=== PATIENT | male | born 1985 | race Caucasian/White ===

== ENCOUNTER 2021-12-31 12:55 | Outpatient (CLI) | payer MEDICAID, SELFPAY ==
[2022-01-01 01:24] LABS: Chloride* 108 mmol/L (96-114); Potassium* 4.3 mmol/L (3.6-5.1); Sodium* 142 mmol/L (135-149)
[2022-01-01 01:27] LABS: Carbon Dioxide* 23 mmol/L (20-32); Estimated Glomerular Filt Rate 99 ml/min
[2022-01-01 01:28] LABS: Blood Urea Nitrogen* 22 mg/dL (5-24); Calcium* 9.2 mg/dL (8.4-10.6); Glucose* 100 mg/dL (60-115)
[2022-01-01 02:53] LABS: SARS PCR* Negative SARS-CoV-2 (Negative)
== END 2021-12-31 12:56 | disposition home or self-care (01) ==
PROVIDERS: PCP Family Medicine; Visit Provider Family Medicine
DX: Z01.818 Encounter for other preprocedural examination (principal); Z20.822 Contact with and (suspected) exposure to COVID-19
CPT/HCPCS: 80048; 87635

== ENCOUNTER 2023-03-07 06:45 | Outpatient (CLI) | payer MEDICAID, SELFPAY | END 2023-03-07 06:46 | disposition home or self-care (01) | LOC: NFLDREF 03-09 12:45 | PROVIDERS: PCP Family Medicine; Referring Provider Family Medicine; Visit Provider Obstetrics & Gynecology | DX: Z31.69 Encounter for other general counseling and advice on procreation (principal) | CPT/HCPCS: 89322 ==

== ENCOUNTER 2024-04-22 09:11 | Outpatient (CLI) | payer SELFPAY | END 2024-04-22 09:12 | disposition home or self-care (01) | PROVIDERS: PCP Family Medicine; Visit Provider Family Medicine | DX: E29.1 Testicular hypofunction (principal); R10.9 Unspecified abdominal pain; R63.5 Abnormal weight gain; Z13.6 Encounter for screening for cardiovascular disorders | CPT/HCPCS: 80053; 80061; 83690; 84270; 84402; 84403; 84443 ==

== ENCOUNTER 2024-05-04 22:08 | Emergency (ER) | payer MEDICAID, SELFPAY ==
--- OUTSIDE RECORDS SUMMARY | 2024-05-04 22:10 | XMS_ITS | Clinical Summary ---
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 Gender Identity Not on file Sexual Orientation Not on file Plan of Treatment Health Maintenance Due Date Last Done Comments Hepatitis B Vaccine (Standin g Order) (1 of 3 - 19+ 3-dose series) 09/18/2002 PERTUSSIS (Standing Order) 09/18/2002 TETANUS (Standing Order) 09/18/2002 COVID-19 Vaccine (2023-2 5 season) 2023 Influenza Vaccine Seasonal (Standing Order) (#1) 2023 HPV Vaccine (Standing Order) Aged Out No longer eligible based on patient's age to complete this topic Pneumococcal/PCV20 Vaccine: Pediatrics (2-5 yrs) and At-Risk Patients (6-64 yrs) (Standing Order) Aged Out No longer eligible b ased on patient's age to complete this topic Insurance [address] [place] [id number] [facility] Care Teams Director Building Relationship Specialty Start Date End Date Ridge Glass MD [address] [address] PCP - General Family Medicine 12/28/21
--- OUTSIDE RECORDS SUMMARY | 2024-05-04 22:10 | XMS_ITS | Continuity of Care Document ---
Author Name [facility]IN User [facility] Address Unknown Organization Unknown Address Unknown Procedures FILTER APPLIED:Only known Procedures with Onset Date within the last 5 years Procedure Date Procedure Provider Additional Inform ation Status SEMEN ANAL STRICT CRITERIA (92040) Completed Encounters FILTER APPLIED:Only known Encounters with Admission Date within the last 5 years Encounter Location Admission Discharge Billing Code [employer] Developer [facility]ande[facility] Outpatient [facility] Unknown [id number] MILKA FREITAS
--- OUTSIDE RECORDS SUMMARY | 2024-05-04 22:10 | XMS_ITS | Clinical Summary ---
Author Organization [facility] Address [place], [place] [address] Care Team Providers Care Time Clock Inspector Name Role Phone Dennis Glass MD Primary Care Provider [phone] Allergies No known active allergies Medications Ventolin HFA 90 mcg/actuation inhaler INHALE 2 PUFFS BY MOUTH EVERY 4 TO 6 HOURS NEEDED FOR SHORTNESS OF BREATH OR WHEEZING 4 Active predniSONE (DELTASONE) 20 mg tabletIndicatio ns:Pneumonia of left upper lobe due to infectious organism Take 2 Tablets (40 mg) by mouth once daily for 5 days. 10 Tablet 5 05/08/19 25 Active azithromycin (ZITHROMAX) 250 mg tabletIndicatio ns:Pneumonia of left upper lobe due to infectious organism Take 500 mg (2 tabs) by mouth on day 1, then 250 mg (1 tab) daily for days 2-5. 6 Tablet 5 05/08/19 25 Active amoxicillin-cla vulanate (AUGMENTIN) 875-125 mg tabletIndicatio ns:Pneumonia of left upper lobe due to infectious organism Take 1 Tablet by mouth every 12 hours for 5 days. 10 Tablet 5 05/08/19 25 Active albuterol HFA (PRO-AIR; VENTOLIN; PROVENTIL) 90 mcg/actuation inhalerIndicati ons:Pneumonia of left upper lobe due to infectious organism Inhale 2 Puffs by mouth 4 times daily if needed for Shortness Of Breath or Wheezing. 1 Each 5 Active Encounters Date Type Department Care Team Description 05/03/2024 3:59 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 - 05/03/2024 4:57 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 Emergency [facility] [address] [place] [address] Ilene Watkins, FRAME PULLEY MORTISING MACHINE OPERATOR Pneumonia of left upper lobe due to infectious organism (Primary Dx) Discharge Disposition: Home Self Care 05/03/2024 Travel from Last 3 Months Social History Tobacco Use Types Packs/Day Years Used Date Smoking Tobacco: Never Smokeless Tobacco: Never Tobacco Cessation:Counseling Given: Not Answered Sex and Gender Information Value Date Recorded Sex Assigned at Not on file Legal Sex Male 2:00 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 Gender Identity Not on file Sexual Orientation Not on file Obstetrics History Last Filed Vital Signs Vital Sign Reading Time Taken Comments Blood Pressure 158/88 05/03/2024 3:56 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 Pulse 118 05/03/2024 3:56 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 Temperature 37.6 C (99.7 F) 05/03/2024 3:55 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 Respiratory Rate 19 05/03/2024 3:56 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 Oxygen Saturation 99% 05/03/2024 3:56 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 Inhaled Oxygen Concentration - - Weight 127 kg (280 lb) 05/03/2024 3:56 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 Height 177.8 cm (5' 10) 05/03/2024 3:56 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 Body Mass Index 40.18 05/03/2024 3:56 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 Plan of Treatment Health Maintenance Due Date Last Done Comments Tdap 09/18/1994 Depression screening for age 12+ 1995 HIV for age 15-65 09/18/1998 BMI (ht and wt on same day) for age 18+ 09/18/2001 Hepatitis C screening for ag e 18-79 09/18/2001 Tetanus booster 2003 Lipids for age 35-44 09/18/2018 COVID-19 vaccine series ( season) 2023 Influenza for age 9-49 12/31/2023 Pneumococcal series for age 6-49 Aged Out No longer eligible based on patient's age to complete this topic Procedures Procedure Name Priority Date/Time Associated Diagnosis Comments XR CHEST 2 VIEWS PA AND LATERAL STAT 05/03/2024 4:28 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 from Last 3 Months Results * XR CHEST 2 VIEWS PA AND LATERAL (05/03/2024 4:28 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) Anatomical Region Laterality Modality CHEST, THORAX, Lung, HEART Digit al Radiography 05/03/2024 4:47 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 Impressions 05/03/2024 4:47 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 Triangular left suprahilar opacification consistent with a focal area of atelectasis and/or infiltrate. A mass or adenopathy might also give this appearance. Suggest interval follow-up post treatment to exclude underlying disease. Dictated by Torey French MD @ 05/03/2024 4:47:02 PM (Electronically Signed) Narrative 05/03/2024 4:47 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 For Patients: As a result of the Cures Act, medical imaging exams and procedure reports are released immediately into your electronic medical record. You may view this report before your referring provider. If you have questions, please contact your health care provider. INDICATION: Shortness of breath, cough, asthma. TECHNIQUE: Chest 2 views. COMPARISON: None FINDINGS: Cardiovascular and mediastinum: Heart size and vasculature are normal in caliber and appearance. Mediastinum is within normal limits. Lungs and pleural spaces: Triangular opacification left suprahilar region anteriorly. No other pulmonary abnormalities. Mild bilateral bronchial wall thickening. No pleural effusion or pneumothorax. Bones and soft tissues: No significant findings. Procedure Note Torey French MD - 05/03/2024 For Patients: As a result of the Cures Act, medical imagingexams and procedure reports are released immediately into your electronicmedical record. You may view this report before your referring provider.If you have questions, please contact your health care provider. INDICATION: Shortness of breath, cough, asthma. TECHNIQUE: Chest 2 views. COMPARISON: None FINDINGS: Cardiovascular and mediastinum: Heart size and vasculature are normal incaliber and appearance. Mediastinum is within normal limits. Lungs and pleural spaces: Triangular opacification left suprahilar regionanteriorly. No other pulmonary abnormalities. Mild bilateral bronchialwall thickening. No pleural effusion or pneumothorax. Bones and soft tissues: No significant findings. IMPRESSION: Triangular left suprahilar opacification consistent with a focal area ofatelectasis and/or infiltrate. A mass or adenopathy might also give thisappearance. Suggest interval follow-up post treatment to excludeunderlying disease. Dictated by Torey French MD @ 05/03/2024 4:47:02 PM (Electronically Signed) Ilene Watkins FRAME PULLEY MORTISING MACHINE OPERATOR GENERAL IMAGING Final Result from Last 3 Months Insurance [facility] Care Teams Time Clock Inspector Relationship Specialty Start Date End Date Dennis Glass MD [address] [place] [address] PCP - General Family Practice 05/03/24
--- NOTE | 2024-05-04 22:21 | ED.GENADULT ---
HPI - General Adult General Time Seen by Provider: 22:22 Date Seen: 05/04/24 Chief complaint: Flank Pain Stated complaint: Left side pain with bruising, has umbilical hernia Time Seen by Provider: 05/04/24 22:18 Source: patient, RN notes reviewed and old records reviewed Mode of arrival: ambulatory Limitations: no limitations History of Present Illness HPI narrative: Nick is a very pleasant 38-year-old gentleman currently on antibiotics for pneumonia who comes to the emergency room with complaints of left-sided abdominal pain. This pain started at approximately 2 hours ago and patient is unable to get comfortable. He notes that he feels like his abdomen is looking like it is bruised as well but he does not report any recent injury. He denies dysuria or blood in his urine. He has not had any vomiting. He does do note that he was diagnosed with pneumonia yesterday and he is feeling better after being placed on an antibiotic. He is quite worried that he had maybe has a bowel obstruction as he reports approximately 18 months of ribbon like stools with occasional blood. He has seen his primary Dr. Hernandez for this and is going to be set up for a colonoscopy. According to notes he has actually had weight gain and no weight loss. No fever or chills with this particular ED visit. Pain does appear to radiate into his left back. Patient does note that at home yesterday he did have some low back pain on both left and right. He was able to get into a comfortable position last night. He feels that this pain is new and he has not experienced in the past. Related Data Home Medications ?Medication ?Instructions ?Recorded ?Confirmed azithromycin 250 mg tablet 250 mg PO DAILY 05/04/24 05/04/24 prednisone 20 mg tablet 20 mg PO BID 05/04/24 05/04/24 Previous Rx's ?Medication ?Instructions ?Recorded albuterol sulfate 90 mcg/actuation 2 puff inhalation Q4-6H PRN 05/15/23 aerosol inhaler shortness of breath or wheezing #8.5 grams Allergies Allergy/AdvReac Type Severity Reaction Status Date / Time No Known Drug Allergies Allergy Verified 05/04/24 22:32 Review of Systems Status of ROS: Reports: 10 or more systems reviewed and unremarkable except as noted in History and below Narrative: No personal or family history of kidney stones. [facility] Medical History Orchitis ?N45.2 - Orchitis (ICD-10) ADD (attention deficit disorder) ?F98.8 - Other specified behavioral and emotional disorders with onset usually occurring in childhood and adolescence (ICD-10) Surgical History Status post nasal septoplasty ?Z98.890 - Other specified postprocedural states (ICD-10) Social History Smoking Status: Former smoker Second hand tobacco smoke exposure: No How often do you have a drink containing alcohol: never AUDIT-C Alcohol total score: 0 Non-prescribed substance use: denies use Exam Narrative: Exam Narrative: Tyrese is alert and oriented. He is pale and diaphoretic seen in room 5. He is standing up and pacing. Heart is with a tachycardic rate normal rhythm. Lungs are with decreased breath sounds in the left lower lung. Crackles noted bilaterally in the mid lungs. Abdomen is obese firm no significant tenderness. Unable to hear bowel sounds at this time. Patient does have a purplish like discoloration but this appears to be more delayed capillary refill on the abdomen rather than bruising itself. Ambulating without difficulty. In obvious discomfort. Const: Vital Signs, click to edit/add: Vital Signs - 24 hr 05/04/24 22:28 05/04/24 22:36 05/04/24 23:08 Temperature 98.0 F 98.0 F Pulse Rate [Right Pulse Oximeter] 110 H Respiratory Rate 20 Blood Pressure [Ri ght Upper Arm] 144/86 H Pulse Oximetry 99 99 Oxygen Delivery Me thod Room Air 05/05/24 00:18 Temperature 98.0 F Pulse Rate [Right Pulse Oximeter] 89 Respiratory Rate 20 Blood Pressure [Ri ght Upper Arm] 123/84 Pulse Oximetry 99 Oxygen Delivery Me thod Room Air Documenting provider has reviewed patient's vital signs: yes Course Course ED Course: IV has been placed in we will give patient morphine 4 mg, Zofran [address] of the abdomen and pelvis with IV contrast. Will also check CBC, comprehensive panel, lactate, lipase, urinalysis. Reevaluation(s) Reevaluation #1: Unfortunately, suboptimal CT given patient's significant movement according to our irrigation service technician. No obvious large hematomas noted however. Patient has continued pain in min give Dilaudid 0.5 mg IV. Reevaluation #2: CT indeed was suboptimal but there are no acute [place] [id number]. Patient is feeling improved but still has pain 5/10. I think it is safe to do Toradol 15 mg IV at this time. Urinalysis with a few RBCs. Suspect this may be a stone although not identified on the CT. Patient notes pain is coming back. Will repeat CT although without contrast at this time. Will pre treat with an additional Dilaudid 0.5 mg so patient is able to lie still. He is in agreement with this plan. Vital Signs Vital signs: Initial Vital Signs Temperature 98.0 F 05/04/24 22:28 Temperature Source Temporal Artery Scan 05/04/24 22:28 Pulse Rate 110 H 05/04/24 22:28 Respiratory Rate 20 05/04/24 22:28 Blood Pressure 144/86 H 05/04/24 22:28 Blood Pressure Mean 105 05/04/24 22:28 Blood Pressure Position Sitting 05/04/24 22:28 Pulse Oximetry 99 05/04/24 22:28 Oxygen Delivery Method Room Air 05/04/24 22:28 Vital Signs Temperature 98.0 F 05/04/24 22:28 Pulse Rate 110 H 05/04/24 22:28 Respiratory Rate 20 05/04/24 22:28 Blood Pressure 144/86 H 05/04/24 22:28 Pulse Oximetry 99 05/04/24 22:28 Oxygen Delivery Method Room Air 05/04/24 22:28 Temperature 98.0 F 05/05/24 00:18 Pulse Rate 89 05/05/24 00:18 Respiratory Rate 20 05/05/24 00:18 Blood Pressure 123/84 05/05/24 00:18 Pulse Oximetry 99 05/05/24 00:18 Oxygen Delivery Method Room Air 05/05/24 00:18 Medications Administered Medications: Discontinued Medications Generic Name Dose Route Start Last Admin Trade Name Freq PRN Reason Stop Dose Admin Hydromorphone HCl 0.5 mg 05/04/24 22:42 05/04/24 22:44 Hydromorphone 0.5 Mg/0.5 Ml Inj IVP 05/04/24 22:43 0.5 mg ONCE ONE Administration Hydromorphone HCl 0.5 mg 05/04/24 23:41 05/04/24 23:46 Hydromorphone 0.5 Mg/0.5 Ml Inj IVP 05/04/24 23:42 0.5 mg ONCE ONE Administration Ketorolac Tromethamine 15 mg 05/04/24 23:04 05/04/24 23:08 Ketorolac 15 Mg/Ml Inj IVP 05/04/24 23:05 15 mg ONCE ONE Administration Morphine Sulfate 4 mg 05/04/24 22:22 05/04/24 22:26 Morphine 4 Mg/Ml Inj IVP 05/04/24 22:23 4 mg ONCE ONE Administration Ondansetron HCl 4 mg 05/04/24 22:22 05/04/24 22:26 Ondansetron 2 Mg/Ml Inj IVP 05/04/24 22:23 4 mg ONCE ONE Administration Medical Decision Making MDM Narrative Medical decision making narrative: 1 flank pain-patient underwent a 2nd CT without contrast as is for CT was significantly compromised by movement. No evidence of stone, obstruction or other abnormality noted on the abdominal portion. Loculated pleural effusion noted on the left. Patient's does describe significant coughing and low back pain throughout the course of the last 24 hours. At this time perhaps this represents muscular spasm verses diaphragmatic irritation secondary to the effusion. Patient noted to have Dilaudid 0.5 mg x 2, Toradol 15 mg, morphine 4 mg. He is feeling better. I do believe he is quite relieved that there were no abnormalities noted in the colon as he is been experiencing changes in the stool caliber as well as occasional blood in his stool over the past 18 months. Patient denies any history of narcotic addiction. Will give him Alexandria 5/3 25 1-2 tablets q.6 hours p.r.n. pain 12. Via our [employer] machine. He is advised not to use any other sedating medications while using this medicine. Flexeril 10 mg p.o. t.i.d. p.r.n. may be used during the day but not in conjunction with Alexandria for any muscular spasm. 2. Pleural effusion-currently being treated with amoxicillin and Zithromax for pneumonia. He notes that he is a quite a bit better today. He was also started on prednisone and inhalers. O2 sats within normal limits and no complaints of shortness of breath this evening. 3. Leukocytosis-likely result of intense pain as well as prednisone use. No evidence of sepsis tonight with normal lactate and patient is afebrile. 4. Disposition-home at this time. Off work until he is feeling better. Follow-up with Dr. Poole for recheck. Return to the emergency room for worsening symptoms. Patient much improved upon discharge. No complaints of chest pain or shortness of breath while here in the emergency room. Medical Records Medical records reviewed: Yes I reviewed the patient's medical records Lab Data Lab results reviewed: Yes I reviewed the patient's lab results Labs: Lab Results 05/04/24 Range/Units 22:22 WBC 21.10 H (4.50-11.00) K/uL RBC 5.14 (4.30-5.90) m/uL Hgb 14.0 (13.5-17.5) gm/dL Hct 43.7 (37.0-53.0) % MCV 85 (80-100) fL MCH 27 (26-34) pg MCHC 32 (32-36) gm/dL RDW Coeff of Phyllis 13.5 (11.5-15.5) % Plt Count 371 (140-440) K/uL Neut % (Auto) 89.9 H (42.0-72.0) % Lymph % (Auto) 3.6 L (20-44) % [place] % (Auto) 5.7 (0.0-11.0) % Eos % (Auto) 0.0 (0.0-7.0) % Baso % (Auto) 0.0 (0.0-3.0) % Neut # (Auto) 19.00 H (1.7-7.0) K/uL Lymph # (Auto) 0.80 L (0.90-2.90) K/uL [place] # (Auto) 1.20 H (0.00-0.90) K/UL Eos # (Auto) 0.00 (0.00-0.50) K/uL Baso # (Auto) 0.00 (0.00-0.30) K/uL Abs Immat Gran (auto) 0.20 (0.00-0.30) K/uL Imm/Tot Granulo (auto) 0.8 % Sodium 136 (135-149) mmol/L Potassium 4.0 (3.6-5.1) mmol/L Chloride 102 (96-114) mmol/L Carbon Dioxide 24 (20-32) mmol/L Anion Gap 10 (7-15) mEq/L BUN 18 (5-24) mg/dL Creatinine 1.0 (0.5-1.5) mg/dL Estimated Creat Clear 104.58 Estimated GFR 98 ml/min Glucose 242 H (60-115) mg/dL Lactate 1.6 (0.5-1.9) mmol/L Calcium 8.9 (8.4-10.6) mg/dL Total Bilirubin 1.0 (0.1-1.5) mg/dL AST 30 (12-35) U/L ALT 70 H (4-50) U/L Alkaline Phosphatase 70 (40-150) U/L Total Protein 7.8 (6.0-8.3) g/dL Albumin 4.3 (3.3-5.0) g/dL Lipase 34 (23-300) U/L Urine Color Ceci A (Yellow) Urine Appearance Clear (Clear) Urine pH 6.0 (5.0-8.5) Ur Specific Roosevelt 1.015 (1.000-1.030) Urine Protein 2+ A (Negative) Urine Glucose (UA) Trace A (Negative) Urine Ketones Trace A (Negative) Urine Blood Trace-intact A (Negative) Urine Nitrite Negative (Negative) Urine Bilirubin Negative (Negative) Urine Urobilinogen 1.0 (0.2-1.0) Ur Leukocyte Esterase Negative (Negative) Urine RBC 2-5 A (0-2) Urine WBC 0-2 (0-5) Ur Squamous Epith Cells None (None-Few) Urine Bacteria Few A (None) Imaging Data CT scan - abdomen: Attestation: I have reviewed the pertinent imaging results. Radiologist's impression: Motion artifact degrades image quality (the patient reportedly is in extreme pain and unable to follow instructions). There is a small left-sided pleural effusion of uncertain etiology with curvilinear atelectasis at the left lung base. Clear right lung base. Diffusely decreased density of the liver likely due to hepatic fatty infiltration. No intrahepatic mass or biliary ductal dilatation. No splenomegaly or splenic infarcts. Normal-appearing pancreas without pancreatic masses. No evidence for pancreatitis. Largely contracted gallbladder. Normal adrenal glands and kidneys. No hydronephrosis. Normal caliber abdominal aorta and iliac arteries. Normal inferior vena cava. The stomach is distended by particular matter likely from a recently ingested meal. There may be a small sliding-type esophageal hiatal hernia. There is no evidence for small or large bowel obstruction. Normal appendix, image 111 series 2. No diverticular disease. No ascites or lymphadenopathy. The urinary bladder, prostate gland, and seminal vesicles are normal. No abdominal wall or inguinal hernias. Slight spurring at L4 and L5. Minor degenerate facet arthropathy of the lower most lumbar spine. IMPRESSION: 1. No acute abdominopelvic process identified. Motion artifact degrades image quality. 2. Distended stomach likely from a recently ingested meal. Possible sliding-type esophageal hiatal hernia. 3. Small left-sided pleural effusion of uncertain etiology. 4. Hepatic fatty infiltration. Repeat abdominal CT: Attestation: I have reviewed the pertinent imaging results. Radiologist's impression: Lower chest: Loculated left-sided pleural effusion with adjacent compressive atelectasis. Liver: Hepatic steatosis. No suspicious hepatic lesions. Gallbladder and bile ducts: Gallbladder is unremarkable. No intra or extrahepatic biliary ductal dilatation. Pancreas: Unremarkable. No mass or inflammation. Spleen: Normal in size. No masses. Adrenal glands: Normal in size. No nodules. Kidneys: Normal in size. No suspicious masses, stones, or hydronephrosis. Contrast in the renal collecting system. GI tract: Unremarkable. Normal in caliber. No sign of mass or inflammation. Normal appendix. Vasculature: Abdominal aorta is normal in caliber. Lymph nodes: No lymphadenopathy. Peritoneum/Abdominal Wall: Tiny fat containing umbilical hernia. Small right-sided inguinal fat containing hernia. No sign of mass or infiltration. No free air or significant free fluid. Pelvis: Contrast within the bladder. No pelvic masses. Bones: Unremarkable for age. IMPRESSION: 1. No acute intra-abdominal process identified. No interval change from 1 hour prior 2. Left-sided pleural effusion. Discharge Plan Discharge Clinical Impression: Pleural effusion, Acute flank pain Patient Disposition: Home, Self-Care Condition: Improved Additional Instructions: Continue amoxicillin, prednisone and Zithromax for treatment of presumed pneumonia. For discomfort you may use Alexandria also known as Vicodin or hydrocodone. Do not mix this medication with any other sedating meds. This will likely cause constipation and do suggest you start a stool softener. During the day you may use Flexeril if needed for muscular spasm. Please do not use Flexeril with Alexandria and again with any other sedating medications. You should not drive if using Flexeril or Alexandria or participate in any activity which could place you at risk for injury. Return to the ER as needed for worsening symptoms. Follow-up with Dr. Glass to ensure resolution of the chest infection. Prescriptions: No Action albuterol sulfate 90 mcg/actuation HFA aerosol inhaler 2 puff inhalation Q4-6H PRN (Reason: shortness of breath or wheezing) Qty: 8.5 3RF azithromycin 250 mg tablet 250 mg PO DAILY prednisone 20 mg tablet 20 mg PO BID Follow Up/Referrals: Dennis Glass MD [Primary Care Provider] - Stand Alone Forms: [email or web address] Info Instructions
--- NOTE | 2024-05-04 22:22 | CRLHL7_ITS ---
For Patients: As a result of the Century Cures Act, medical imaging exams and procedure reports are released immediately into your electronic medical record. You may view this report before your referring provider. If you have questions, please contact your health care provider. INDICATION: 38 year-old male. Left-sided flank and abdominal pain with distention. TECHNIQUE: Contrast-enhanced CT of the abdomen and pelvis. 148 cc nonionic Isovue-370 administered. FINDINGS: Motion artifact degrades image quality (the patient reportedly is in extreme pain and unable to follow instructions). There is a small left-sided pleural effusion of uncertain etiology with curvilinear atelectasis at the left lung base. Clear right lung base. Diffusely decreased density of the liver likely due to hepatic fatty infiltration. No intrahepatic mass or biliary ductal dilatation. No splenomegaly or splenic infarcts. Normal-appearing pancreas without pancreatic masses. No evidence for pancreatitis. Largely contracted gallbladder. Normal adrenal glands and kidneys. No hydronephrosis. Normal caliber abdominal aorta and iliac arteries. Normal inferior vena cava. The stomach is distended by particular matter likely from a recently ingested meal. There may be a small sliding-type esophageal hiatal hernia. There is no evidence for small or large bowel obstruction. Normal appendix, image 111 series 2. No diverticular disease. No ascites or lymphadenopathy. The urinary bladder, prostate gland, and seminal vesicles are normal. No abdominal wall or inguinal hernias. Slight spurring at L4 and L5. Minor degenerate facet arthropathy of the lower most lumbar spine. IMPRESSION: 1. No acute abdominopelvic process identified. Motion artifact degrades image quality. 2. Distended stomach likely from a recently ingested meal. Possible sliding-type esophageal hiatal hernia. 3. Small left-sided pleural effusion of uncertain etiology. 4. Hepatic fatty infiltration. Please note that all CT scans at this facility use dose modulation, iterative reconstruction, and/or weight-based dosing when appropriate to reduce radiation dose to as low as reasonably achievable. Dictated by Jonn Gates MD @ 05/04/2024 10:52:05 PM (Electronically Signed)
[2024-05-04] MEDS: MORPHINE 4 MG/ML INJ IVP (22:26)
[2024-05-04] MEDS: ONDANSETRON 2 MG/ML inj 4 MG IVP (22:26)
[2024-05-04 22:28] VITALS: BP 144/86; PULSE 110; RESP 20; TEMP 36.7; O2SAT 99; BMI 39.1
--- OUTSIDE RECORDS SUMMARY | 2024-05-04 22:31 | XMS_ITS | Continuity of Care Document ---
Author Name [facility] User [facility] Address Unknown Organization Unknown Address Unknown Procedures FILTER APPLIED:Only known Procedures with Onset Date within the last 5 years Procedure Date Procedure Provider Additional Inform ation Status SEMEN ANAL STRICT CRITERIA (58432) Completed Encounters FILTER APPLIED:Only known Encounters with Admission Date within the last 5 years Encounter Location Admission Discharge Billing Code Machine Tender [facility] Unknown [id number] MILKA FREITAS
--- OUTSIDE RECORDS SUMMARY | 2024-05-04 22:31 | XMS_ITS | Clinical Summary ---
Author Organization 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
--- OUTSIDE RECORDS SUMMARY | 2024-05-04 22:31 | XMS_ITS | Clinical Summary ---
Author Organization [facility] Address [place], [place] [address] Care Team Providers Care Airplane And Engine Inspector Name Role Phone Dennis Glass MD Primary Care Provider [phone] Allergies No known active allergies Medications Ventolin [...] Department Care Team Description 05/03/2024 3:59 PM 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 HELPER - 05/03/2024 4:57 PM 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 HELPER Emergency [facility] [address] [place] [address] Ilene Watkins, MEDICAL TECHNOLOGIST PRN Pneumonia of left upper lobe due to infectious organism (Primary Dx) Discharge Disposition: Home Self Care 05/03/2024 Travel from Last 3 Months Social History Tobacco Use Types Packs/Day Years Used Date Smoking Tobacco: Never Smokeless Tobacco: Never Tobacco Cessation:Counseling Given: Not Answered Sex and Gender Information Value Date Recorded Sex Assigned at Not on file Legal Sex Male 2:00 PM 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 HELPER Gender Identity Not on file Sexual Orientation Not on file Obstetrics History Last Filed Vital Signs Vital Sign Reading Time Taken Comments Blood Pressure 158/88 05/03/2024 3:56 PM 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 HELPER Pulse 118 05/03/2024 3:56 PM 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 HELPER Temperature 37.6 C (99.7 F) 05/03/2024 3:55 PM 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 HELPER Respiratory Rate 19 05/03/2024 3:56 PM 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 HELPER Oxygen Saturation 99% 05/03/2024 3:56 PM 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 HELPER Inhaled Oxygen Concentration - - Weight 127 kg (280 lb) 05/03/2024 3:56 PM 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 HELPER Height 177.8 cm (5' 10) 05/03/2024 3:56 PM 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 HELPER Body Mass Index 40.18 05/03/2024 3:56 PM 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 HELPER Plan of Treatment Health Maintenance Due Date [...] PA AND LATERAL STAT 05/03/2024 4:28 PM 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 HELPER from Last 3 Months Results * XR CHEST 2 VIEWS PA AND LATERAL (05/03/2024 4:28 PM 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 HELPER) Anatomical Region Laterality Modality CHEST, THORAX, Lung, HEART Digit al Radiography 05/03/2024 4:47 PM 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 HELPER Impressions 05/03/2024 4:47 PM 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 HELPER Triangular left suprahilar opacification consistent with a focal area of atelectasis and/or infiltrate. A mass or adenopathy might also give this appearance. Suggest interval follow-up post treatment to exclude underlying disease. Dictated by Torey French MD @ 05/03/2024 4:47:02 PM (Electronically Signed) Narrative 05/03/2024 4:47 PM 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 HELPER For Patients: As a result of the [...] 05/03/2024 4:47:02 PM (Electronically Signed) Ilene Watkins MEDICAL TECHNOLOGIST PRN GENERAL IMAGING Final Result from Last 3 Months Insurance [facility] Care Teams Airplane And Engine Inspector Relationship Specialty Start Date End Date Dennis Glass MD [id number] [place] [address] PCP - General Family Practice 05/03/24
[2024-05-04 22:35] LABS: Lactate* 1.6 mmol/L (0.5-1.9)
[2024-05-04 22:36] VITALS: O2SAT 99
[2024-05-04 22:37] LABS: Hematocrit 43.7 % (37.0-53.0); Immature Granulocytes Pct Auto 0.8 %; Lymphocytes Percent Auto 3.6 % (20-44); Mean Corpuscular HGB Conc 32 gm/dL (32-36); Mean Corpuscular Hemoglobin 27 pg (26-34); Mean Corpuscular Volume 85 fL (80-100); Monocytes Percent Auto 5.7 % (0.0-11.0); Neutrophils Percent Auto 89.9 % (42.0-72.0); Platelet Count* 371 K/uL (140-440); RDW Coefficient of Variation % 13.5 % (11.5-15.5); Red Blood Count 5.14 m/uL (4.30-5.90)
[2024-05-04] MEDS: HYDROmorphone 0.5 mg/0.5 ml inj IVP ×2 (22:44→23:46)
[2024-05-04 22:54] LABS: Appearance Urine Clear (Clear); Bilirubin Urine Negative (Negative); Blood Urine Trace-intact (Negative); Color Urine Amber (Yellow); Glucose Urine Trace (Negative); Ketones Urine Trace (Negative); Leukocyte Esterase Urine Negative (Negative); Nitrite Urine Negative (Negative); Protein Urine 2+ (Negative); Specific Gravity Urine 1.015 (1.000-1.030)
[2024-05-04 22:55] LABS: Albumin* 4.3 g/dL (3.3-5.0); Chloride* 102 mmol/L (96-114); Sodium* 136 mmol/L (135-149)
[2024-05-04 22:58] LABS: Alanine Aminotransferase* 70 U/L (4-50); Alkaline Phosphatase* 70 U/L (40-150); Anion Gap 10 mEq/L (7-15); Aspartate Amino Transferase* 30 U/L (12-35); Blood Urea Nitrogen* 18 mg/dL (5-24); Calcium* 8.9 mg/dL (8.4-10.6); Carbon Dioxide* 24 mmol/L (20-32); Est. Creatinine Clearance* 104.58; Estimated Glomerular Filt Rate 98 ml/min; Glucose* 242 mg/dL (60-115); Lipase* 34 U/L (23-300); Total Protein* 7.8 g/dL (6.0-8.3)
[2024-05-04 23:01] LABS: Bacteria Urine Few; WBC Urine 0-2 (0-5)
[2024-05-04 23:02] LABS: Slide Review Reflex No
[2024-05-04 23:08] VITALS: TEMP 36.7
[2024-05-04] MEDS: KETOROLAC 15 MG/ML inj IVP (23:08)
--- NOTE | 2024-05-04 23:41 | CRLHL7_ITS ---
For Patients: As a result of the Century Cures Act, medical imaging exams and procedure reports are released immediately into your electronic medical record. You may view this report before your referring provider. If you have questions, please contact your health care provider. INDICATION: LEFT FLANK PAIN,WBC HIGH. TECHNIQUE: CT abdomen and pelvis without contrast. COMPARISON: May 04, 2024. FINDINGS: Limited evaluation of the intra-abdominal solid organs without IV contrast. Lower chest: Loculated left-sided pleural effusion with adjacent compressive atelectasis. Liver: Hepatic steatosis. No suspicious hepatic lesions. Gallbladder and bile ducts: Gallbladder is unremarkable. No intra or extrahepatic biliary ductal dilatation. Pancreas: Unremarkable. No mass or inflammation. Spleen: Normal in size. No masses. Adrenal glands: Normal in size. No nodules. Kidneys: Normal in size. No suspicious masses, stones, or hydronephrosis. Contrast in the renal collecting system. GI tract: Unremarkable. Normal in caliber. No sign of mass or inflammation. Normal appendix. Vasculature: Abdominal aorta is normal in caliber. Lymph nodes: No lymphadenopathy. Peritoneum/Abdominal Wall: Tiny fat containing umbilical hernia. Small right-sided inguinal fat containing hernia. No sign of mass or infiltration. No free air or significant free fluid. Pelvis: Contrast within the bladder. No pelvic masses. Bones: Unremarkable for age. IMPRESSION: 1. No acute intra-abdominal process identified. No interval change from 1 hour prior 2. Left-sided pleural effusion. Please note that all CT scans at this facility use dose modulation, iterative reconstruction, and/or weight-based dosing when appropriate to reduce radiation dose to as low as reasonably achievable. Dictated by Rachana Tavarez MD @ 05/05/2024 12:09:40 AM (Electronically Signed)
[2024-05-05 00:18] VITALS: BP 123/84; PULSE 89; RESP 20; TEMP 36.7; O2SAT 99
[2024-05-05 01:00] VITALS: BP 123/84; PULSE 89; RESP 20; TEMP 36.7
== END 2024-05-05 01:00 | disposition home or self-care (01) ==
PROVIDERS: Emergency Provider Family Medicine; PCP Family Medicine
DX: J90 Pleural effusion, not elsewhere classified (principal); J18.9 Pneumonia, unspecified organism
CPT/HCPCS: 36415; 74176; 74177; 80053; 81001; 83605; 83690; 85025; 87086; 94761; 96374; 96375; 99284; J1171; J1885; J2270; J2405; Q9967

== ENCOUNTER 2024-05-07 18:02 | Emergency (ER) | payer OTHER, SELFPAY ==
[2024-05-07] VITALS (12 sets, daily range): BP systolic 116–135; BP diastolic 82–107; PULSE 118–127; RESP 16–24; TEMP 37.5; O2SAT 90–100; BMI 40.4
--- NOTE | 2024-05-07 19:13 | ED.GENADULT ---
HPI - General Adult General Time Seen by Provider: 19:13 <Maranda Younger MD - Last Filed: 05/08/24 17:23> Date Seen: 05/07/24 <Maranda Younger MD - Last Filed: 05/08/24 17:23> Chief complaint: Shortness of Breath/Dyspnea <Maranda Younger MD - Last Filed: 05/08/24 17:23> Stated complaint: Pneumonia, fluid buildup <Maranda Younger MD - Last Filed: 05/08/24 17:23> Time Seen by Provider: 05/07/24 19:02 <Maranda Younger MD - Last Filed: 05/08/24 17:23> Source: patient and family <Maranda Younger MD - Last Filed: 05/08/24 17:23> Mode of arrival: ambulatory <Maranda Younger MD - Last Filed: 05/08/24 17:23> Limitations: no limitations <Maranda Younger MD - Last Filed: 05/08/24 17:23> History of Present Illness HPI narrative: This 38-year-old male is referred from Urgent Care with large left-sided pleural effusion and increasing shortness of breath. Patient was sick for about 4-5 weeks with cough and respiratory symptoms. Went in to an outside urgent care this past Monday, today is Monday. He did get started on Augmentin, Z-Santiago, prednisone. He does have underlying asthma and has been using his albuterol frequently. His fevers finally broke on Monday. He did come into the ED on Monday with flank pain, was found have a left pleural effusion. Patient had a CT of his abdomen and pelvis thinking that there was something wrong abdominally, there is just left pleural effusion. Really is not feeling improved with outpatient antibiotics as far as his coughing. His fever is better. His oxygenation in urgent care was down to 92%. His prior readings with us were in the mid to upper 90s. <Maranda Younger MD - Last Filed: 05/08/24 17:23> Related Data Home medications: Home Medications ?Medication ?Instructions ?Recorded ?Confirmed azithromycin 250 mg tablet 250 mg PO DAILY 05/04/24 05/07/24 prednisone 20 mg tablet 20 mg PO BID 05/04/24 05/07/24 Previous Rx's ?Medication ?Instructions ?Recorded albuterol sulfate 90 mcg/actuation 2 puff inhalation Q4-6H PRN 05/15/23 aerosol inhaler shortness of breath or wheezing #8.5 grams <Maranda Younger MD - Last Filed: 05/08/24 17:23> Allergies/adverse reactions: Allergies Allergy/AdvReac Type Severity Reaction Status Date / Time No Known Drug Allergies Allergy Verified 05/07/24 19:26 <Maranda Younger MD - Last Filed: 05/08/24 17:23> Review of Systems Status of ROS: Reports: 6 or more systems reviewed and unremarkable except as noted in History and below <Maranda Younger MD - Last Filed: 05/08/24 17:23> [facility] Medical History: Medical History Orchitis ?N45.2 - Orchitis (ICD-10) ADD (attention deficit disorder) ?F98.8 - Other specified behavioral and emotional disorders with onset usually occurring in childhood and adolescence (ICD-10) <Maranda Younger MD - Last Filed: 05/08/24 17:23> Surgical History: Surgical History Status post nasal septoplasty ?Z98.890 - Other specified postprocedural states (ICD-10) <Maranda Younger MD - Last Filed: 05/08/24 17:23> Social History: Social History Smoking Status: Former smoker Second hand tobacco smoke exposure: No How often do you have a drink containing alcohol: never AUDIT-C Alcohol total score: 0 Non-prescribed substance use: denies use <Maranda Younger MD - Last Filed: 01/08/25 17:23> Exam Const: Vital Signs, click to edit/add: Vital Signs - 24 hr 05/08/24 14:00 05/08/24 14:30 05/08/24 14:45 Temperature Pulse Rate 112 H 112 H 111 H Pulse Rate [Right Pulse Oximeter] Respiratory Rate Blood Pressure Blood Pressure [Ri ght Upper Arm] Pulse Oximetry 94 96 97 Oxygen Delivery Me thod Oxygen Flow Rate 05/08/24 15:39 05/08/24 15:40 05/08/24 17:37 Temperature 98.5 F 98.6 F Pulse Rate 118 H Pulse Rate [Right Pulse Oximeter] 116 H 114 H Respiratory Rate 18 18 Blood Pressure 134/82 Blood Pressure [Ri ght Upper Arm] 134/82 126/92 H Pulse Oximetry 95 95 97 Oxygen Delivery Me thod Nasal Cannula Nasal Cannula Oxygen Flow Rate 2.5 2.5 05/08/24 19:00 05/08/24 19:19 05/08/24 21:55 Temperature Pulse Rate 106 H 109 H 111 H Pulse Rate [Right Pulse Oximeter] Respiratory Rate 18 20 Blood Pressure 123/75 129/86 Blood Pressure [Ri ght Upper Arm] Pulse Oximetry 94 95 94 Oxygen Delivery Me thod Nasal Cannula Nasal Cannula Nasal Cannula Oxygen Flow Rate 2.5 2.5 2.5 05/08/24 22:30 05/08/24 22:45 05/08/24 23:00 Temperature 98.7 F Pulse Rate 107 H 117 H Pulse Rate [Right Pulse Oximeter] Respiratory Rate Blood Pressure Blood Pressure [Ri ght Upper Arm] Pulse Oximetry 94 99 Oxygen Delivery Me thod Nasal Cannula Oxygen Flow Rate 1 05/08/24 23:04 05/08/24 23:30 05/09/24 00:00 Temperature Pulse Rate 111 H 110 H 114 H Pulse Rate [Right Pulse Oximeter] Respiratory Rate Blood Pressure 123/73 Blood Pressure [Ri ght Upper Arm] Pulse Oximetry 96 95 95 Oxygen Delivery Me thod Oxygen Flow Rate 05/09/24 00:03 05/09/24 01:02 05/09/24 01:03 Temperature Pulse Rate 111 H 108 H 109 H Pulse Rate [Right Pulse Oximeter] Respiratory Rate 18 Blood Pressure 138/98 H 145/97 H Blood Pressure [Ri ght Upper Arm] Pulse Oximetry 94 95 95 Oxygen Delivery Me thod Room Air Oxygen Flow Rate 05/09/24 01:30 05/09/24 01:50 05/09/24 02:00 Temperature 98.6 F Pulse Rate 112 H 115 H Pulse Rate [Right Pulse Oximeter] Respiratory Rate Blood Pressure Blood Pressure [Ri ght Upper Arm] Pulse Oximetry 96 92 Oxygen Delivery Me thod Room Air Room Air Oxygen Flow Rate 05/09/24 02:30 05/09/24 04:30 05/09/24 05:00 Temperature Pulse Rate 110 H 113 H 117 H Pulse Rate [Right Pulse Oximeter] Respiratory Rate Blood Pressure Blood Pressure [Ri ght Upper Arm] Pulse Oximetry 95 92 95 Oxygen Delivery Me thod Room Air Nasal Cannula Nasal Cannula Oxygen Flow Rate 1 1 05/09/24 05:30 05/09/24 06:00 05/09/24 06:30 Temperature Pulse Rate 112 H 104 H 110 H Pulse Rate [Right Pulse Oximeter] Respiratory Rate Blood Pressure Blood Pressure [Ri ght Upper Arm] Pulse Oximetry 93 92 93 Oxygen Delivery Me thod Nasal Cannula Nasal Cannula Nasal Cannula Oxygen Flow Rate 1 1 1 05/09/24 06:53 05/09/24 08:55 05/09/24 10:39 Temperature 98.1 F 97.4 F L 97.7 F Pulse Rate Pulse Rate [Right Pulse Oximeter] 118 H 115 H 114 H Respiratory Rate 18 18 18 Blood Pressure Blood Pressure [Ri ght Upper Arm] 148/99 H 132/76 130/91 H Pulse Oximetry 91 94 93 Oxygen Delivery Me thod Nasal Cannula Nasal Cannula Nasal Cannula Oxygen Flow Rate 1 1 1 05/09/24 12:39 Temperature 98.4 F Pulse Rate Pulse Rate [Right Pulse Oximeter] 108 H Respiratory Rate 18 Blood Pressure Blood Pressure [Ri ght Upper Arm] 129/85 Pulse Oximetry 97 Oxygen Delivery Me thod Nasal Cannula Oxygen Flow Rate 1 This 38-year-old 48 male is alert, interactive, dry irritating cough that does interrupt his speech pattern. His voice is normal, not hoarse. He has flushed cheeks but no rash. Sclera clear. Neck thick but supple, no adenopathy noted. Diminished breath sounds throughout his left posterior lung field, right sounds normal without wheezing or crackles. CV fast but regular, no murmur, normal S1-S2, no S3-S4. Abdomen is soft, nontender, nondistended, no organomegaly. He has no lower extremity edema. <Maranda Younger MD - Last Filed: 05/08/24 17:23> Vital Signs, click to edit/add: Vital Signs - 24 hr 05/08/24 14:00 05/08/24 14:30 05/08/24 14:45 Temperature Pulse Rate 112 H 112 H 111 H Pulse Rate [Right Pulse Oximeter] Respiratory Rate Blood Pressure Blood Pressure [Ri ght Upper Arm] Pulse Oximetry 94 96 97 Oxygen Delivery Me thod Oxygen Flow Rate 05/08/24 15:39 05/08/24 15:40 05/08/24 17:37 Temperature 98.5 F 98.6 F Pulse Rate 118 H Pulse Rate [Right Pulse Oximeter] 116 H 114 H Respiratory Rate 18 18 Blood Pressure 134/82 Blood Pressure [Ri ght Upper Arm] 134/82 126/92 H Pulse Oximetry 95 95 97 Oxygen Delivery Me thod Nasal Cannula Nasal Cannula Oxygen Flow Rate 2.5 2.5 05/08/24 19:00 05/08/24 19:19 05/08/24 21:55 Temperature Pulse Rate 106 H 109 H 111 H Pulse Rate [Right Pulse Oximeter] Respiratory Rate 18 20 Blood Pressure 123/75 129/86 Blood Pressure [Ri ght Upper Arm] Pulse Oximetry 94 95 94 Oxygen Delivery Me thod Nasal Cannula Nasal Cannula Nasal Cannula Oxygen Flow Rate 2.5 2.5 2.5 05/08/24 22:30 05/08/24 22:45 05/08/24 23:00 Temperature 98.7 F Pulse Rate 107 H 117 H Pulse Rate [Right Pulse Oximeter] Respiratory Rate Blood Pressure Blood Pressure [Ri ght Upper Arm] Pulse Oximetry 94 99 Oxygen Delivery Me thod Nasal Cannula Oxygen Flow Rate 1 05/08/24 23:04 05/08/24 23:30 05/09/24 00:00 Temperature Pulse Rate 111 H 110 H 114 H Pulse Rate [Right Pulse Oximeter] Respiratory Rate Blood Pressure 123/73 Blood Pressure [Ri ght Upper Arm] Pulse Oximetry 96 95 95 Oxygen Delivery Me thod Oxygen Flow Rate 05/09/24 00:03 05/09/24 01:02 05/09/24 01:03 Temperature Pulse Rate 111 H 108 H 109 H Pulse Rate [Right Pulse Oximeter] Respiratory Rate 18 Blood Pressure 138/98 H 145/97 H Blood Pressure [Ri ght Upper Arm] Pulse Oximetry 94 95 95 Oxygen Delivery Me thod Room Air Oxygen Flow Rate 05/09/24 01:30 05/09/24 01:50 05/09/24 02:00 Temperature 98.6 F Pulse Rate 112 H 115 H Pulse Rate [Right Pulse Oximeter] Respiratory Rate Blood Pressure Blood Pressure [Ri ght Upper Arm] Pulse Oximetry 96 92 Oxygen Delivery Me thod Room Air Room Air Oxygen Flow Rate 05/09/24 02:30 05/09/24 04:30 05/09/24 05:00 Temperature Pulse Rate 110 H 113 H 117 H Pulse Rate [Right Pulse Oximeter] Respiratory Rate Blood Pressure Blood Pressure [Ri ght Upper Arm] Pulse Oximetry 95 92 95 Oxygen Delivery Me thod Room Air Nasal Cannula Nasal Cannula Oxygen Flow Rate 1 1 05/09/24 05:30 05/09/24 06:00 05/09/24 06:30 Temperature Pulse Rate 112 H 104 H 110 H Pulse Rate [Right Pulse Oximeter] Respiratory Rate Blood Pressure Blood Pressure [Ri ght Upper Arm] Pulse Oximetry 93 92 93 Oxygen Delivery Me thod Nasal Cannula Nasal Cannula Nasal Cannula Oxygen Flow Rate 1 1 1 05/09/24 06:53 05/09/24 08:55 05/09/24 10:39 Temperature 98.1 F 97.4 F L 97.7 F Pulse Rate Pulse Rate [Right Pulse Oximeter] 118 H 115 H 114 H Respiratory Rate 18 18 18 Blood Pressure Blood Pressure [Ri ght Upper Arm] 148/99 H 132/76 130/91 H Pulse Oximetry 91 94 93 Oxygen Delivery Me thod Nasal Cannula Nasal Cannula Nasal Cannula Oxygen Flow Rate 1 1 1 05/09/24 12:39 Temperature 98.4 F Pulse Rate Pulse Rate [Right Pulse Oximeter] 108 H Respiratory Rate 18 Blood Pressure Blood Pressure [Ri ght Upper Arm] 129/85 Pulse Oximetry 97 Oxygen Delivery Me thod Nasal Cannula Oxygen Flow Rate 1 <Mariusz Mathews MD - Last Filed: 05/08/24 18:16> Vital Signs, click to edit/add: Vital Signs - 24 hr 05/08/24 14:00 05/08/24 14:30 05/08/24 14:45 Temperature Pulse Rate 112 H 112 H 111 H Pulse Rate [Right Pulse Oximeter] Respiratory Rate Blood Pressure Blood Pressure [Ri ght Upper Arm] Pulse Oximetry 94 96 97 Oxygen Delivery Me thod Oxygen Flow Rate 05/08/24 15:39 05/08/24 15:40 05/08/24 17:37 Temperature 98.5 F 98.6 F Pulse Rate 118 H Pulse Rate [Right Pulse Oximeter] 116 H 114 H Respiratory Rate 18 18 Blood Pressure 134/82 Blood Pressure [Ri ght Upper Arm] 134/82 126/92 H Pulse Oximetry 95 95 97 Oxygen Delivery Me thod Nasal Cannula Nasal Cannula Oxygen Flow Rate 2.5 2.5 05/08/24 19:00 05/08/24 19:19 05/08/24 21:55 Temperature Pulse Rate 106 H 109 H 111 H Pulse Rate [Right Pulse Oximeter] Respiratory Rate 18 20 Blood Pressure 123/75 129/86 Blood Pressure [Ri ght Upper Arm] Pulse Oximetry 94 95 94 Oxygen Delivery Me thod Nasal Cannula Nasal Cannula Nasal Cannula Oxygen Flow Rate 2.5 2.5 2.5 05/08/24 22:30 05/08/24 22:45 05/08/24 23:00 Temperature 98.7 F Pulse Rate 107 H 117 H Pulse Rate [Right Pulse Oximeter] Respiratory Rate Blood Pressure Blood Pressure [Ri ght Upper Arm] Pulse Oximetry 94 99 Oxygen Delivery Me thod Nasal Cannula Oxygen Flow Rate 1 05/08/24 23:04 05/08/24 23:30 05/09/24 00:00 Temperature Pulse Rate 111 H 110 H 114 H Pulse Rate [Right Pulse Oximeter] Respiratory Rate Blood Pressure 123/73 Blood Pressure [Ri ght Upper Arm] Pulse Oximetry 96 95 95 Oxygen Delivery Me thod Oxygen Flow Rate 05/09/24 00:03 05/09/24 01:02 05/09/24 01:03 Temperature Pulse Rate 111 H 108 H 109 H Pulse Rate [Right Pulse Oximeter] Respiratory Rate 18 Blood Pressure 138/98 H 145/97 H Blood Pressure [Ri ght Upper Arm] Pulse Oximetry 94 95 95 Oxygen Delivery Me thod Room Air Oxygen Flow Rate 05/09/24 01:30 05/09/24 01:50 05/09/24 02:00 Temperature 98.6 F Pulse Rate 112 H 115 H Pulse Rate [Right Pulse Oximeter] Respiratory Rate Blood Pressure Blood Pressure [Ri ght Upper Arm] Pulse Oximetry 96 92 Oxygen Delivery Me thod Room Air Room Air Oxygen Flow Rate 05/09/24 02:30 05/09/24 04:30 05/09/24 05:00 Temperature Pulse Rate 110 H 113 H 117 H Pulse Rate [Right Pulse Oximeter] Respiratory Rate Blood Pressure Blood Pressure [Ri ght Upper Arm] Pulse Oximetry 95 92 95 Oxygen Delivery Me thod Room Air Nasal Cannula Nasal Cannula Oxygen Flow Rate 1 1 05/09/24 05:30 05/09/24 06:00 05/09/24 06:30 Temperature Pulse Rate 112 H 104 H 110 H Pulse Rate [Right Pulse Oximeter] Respiratory Rate Blood Pressure Blood Pressure [Ri ght Upper Arm] Pulse Oximetry 93 92 93 Oxygen Delivery Me thod Nasal Cannula Nasal Cannula Nasal Cannula Oxygen Flow Rate 1 1 1 05/09/24 06:53 05/09/24 08:55 05/09/24 10:39 Temperature 98.1 F 97.4 F L 97.7 F Pulse Rate Pulse Rate [Right Pulse Oximeter] 118 H 115 H 114 H Respiratory Rate 18 18 18 Blood Pressure Blood Pressure [Ri ght Upper Arm] 148/99 H 132/76 130/91 H Pulse Oximetry 91 94 93 Oxygen Delivery Me thod Nasal Cannula Nasal Cannula Nasal Cannula Oxygen Flow Rate 1 1 1 05/09/24 12:39 Temperature 98.4 F Pulse Rate Pulse Rate [Right Pulse Oximeter] 108 H Respiratory Rate 18 Blood Pressure Blood Pressure [Ri ght Upper Arm] 129/85 Pulse Oximetry 97 Oxygen Delivery Me thod Nasal Cannula Oxygen Flow Rate 1 <Paulo Isidro DO - Last Filed: 05/09/24 13:46> Documenting provider has reviewed patient's vital signs: yes <Maranda Younger MD - Last Filed: 05/08/24 17:23> Course Course ED Course: Patient needs repeat CT imaging, have discussed with them that we will be doing chest CT with PE protocol to rule out underlying pulmonary emboli as well. They are in agreement with this. Will need an IV, will obtain blood work and recheck labs with him. He could have worsening pneumonia, pulmonary embolus, complications of pneumonia with the pleural effusion including empyema. <Maranda Younger MD - Last Filed: 05/08/24 17:23> Reevaluation(s) Time of Reevaluation #1: 20:36 <Maranda Younger MD - Last Filed: 05/08/24 17:23> Reevaluation #1: Have reviewed patient's CT with him. We discussed that he needs transfer. We will start calling facilities. He understands that there are limitations where he can potentially go but he ultimately needs to go with there is pulmonology and maybe even thoracic surgery. 8:28 p.m.: Spoke with RN in the transfer center, [facility] including [place], [place], [place] and [place] are on full med surg diversion. <Maranda Younger MD - Last Filed: 05/08/24 17:23> Consultations Consultation #1: Did briefly run this case by our general surgeon Dr. Rowan to ensure that she agreed with transfer. Certainly by a his CT reading by Radiology, does not sound like something that we can just easily due thoracentesis on here. She did review the CT as well as the radiology report, agrees that patient needs transfer. <Maranda Younger MD - Last Filed: 05/08/24 17:23> Time: 20:28 <Maranda Younger MD - Last Filed: 05/08/24 17:23> Vital Signs Vital signs: Initial Vital Signs Temperature 99.5 F 05/07/24 18:10 Temperature Source Temporal Artery Scan 05/07/24 18:10 Pulse Rate 119 H 05/07/24 18:10 Pulse Rhythm Regular 05/07/24 18:10 Pulse Strength 3+ Normal 05/07/24 18:10 Respiratory Rate 24 05/07/24 18:10 Blood Pressure 130/90 H 05/07/24 18:10 Blood Pressure Mean 103 05/07/24 18:10 Blood Pressure Position Sitting 05/07/24 18:10 Pulse Oximetry 92 05/07/24 18:10 Oxygen Delivery Method Room Air 05/07/24 18:10 Vital Signs Temperature 99.5 F 05/07/24 18:10 Pulse Rate 119 H 05/07/24 18:10 Respiratory Rate 24 05/07/24 18:10 Blood Pressure 130/90 H 05/07/24 18:10 Pulse Oximetry 92 05/07/24 18:10 Oxygen Delivery Method Room Air 05/07/24 18:10 Temperature 98.4 F 05/09/24 12:39 Pulse Rate 108 H 05/09/24 12:39 Respiratory Rate 18 05/09/24 12:39 Blood Pressure 129/85 05/09/24 12:39 Pulse Oximetry 97 05/09/24 12:39 Oxygen Delivery Method Nasal Cannula 05/09/24 12:39 Oxygen Flow Rate 1 05/09/24 12:39 Fraction of Inspired Oxygen 2 05/07/24 20:54 <Maranda Younger MD - Last Filed: 05/08/24 17:23> Initial Vital Signs Temperature 99.5 F 05/07/24 18:10 Temperature Source Temporal Artery Scan 05/07/24 18:10 Pulse Rate 119 H 05/07/24 18:10 Pulse Rhythm Regular 05/07/24 18:10 Pulse Strength 3+ Normal 05/07/24 18:10 Respiratory Rate 24 05/07/24 18:10 Blood Pressure 130/90 H 05/07/24 18:10 Blood Pressure Mean 103 05/07/24 18:10 Blood Pressure Position Sitting 05/07/24 18:10 Pulse Oximetry 92 05/07/24 18:10 Oxygen Delivery Method Room Air 05/07/24 18:10 Vital Signs Temperature 99.5 F 05/07/24 18:10 Pulse Rate 119 H 05/07/24 18:10 Respiratory Rate 24 05/07/24 18:10 Blood Pressure 130/90 H 05/07/24 18:10 Pulse Oximetry 92 05/07/24 18:10 Oxygen Delivery Method Room Air 05/07/24 18:10 Temperature 98.4 F 05/09/24 12:39 Pulse Rate 108 H 05/09/24 12:39 Respiratory Rate 18 05/09/24 12:39 Blood Pressure 129/85 05/09/24 12:39 Pulse Oximetry 97 05/09/24 12:39 Oxygen Delivery Method Nasal Cannula 05/09/24 12:39 Oxygen Flow Rate 1 05/09/24 12:39 Fraction of Inspired Oxygen 2 05/07/24 20:54 <Mariusz Mathews MD - Last Filed: 05/08/24 18:16> Initial Vital Signs Temperature 99.5 F 05/07/24 18:10 Temperature Source Temporal Artery Scan 05/07/24 18:10 Pulse Rate 119 H 05/07/24 18:10 Pulse Rhythm Regular 05/07/24 18:10 Pulse Strength 3+ Normal 05/07/24 18:10 Respiratory Rate 24 05/07/24 18:10 Blood Pressure 130/90 H 05/07/24 18:10 Blood Pressure Mean 103 05/07/24 18:10 Blood Pressure Position Sitting 05/07/24 18:10 Pulse Oximetry 92 05/07/24 18:10 Oxygen Delivery Method Room Air 05/07/24 18:10 Vital Signs Temperature 99.5 F 05/07/24 18:10 Pulse Rate 119 H 05/07/24 18:10 Respiratory Rate 24 05/07/24 18:10 Blood Pressure 130/90 H 05/07/24 18:10 Pulse Oximetry 92 05/07/24 18:10 Oxygen Delivery Method Room Air 05/07/24 18:10 Temperature 98.4 F 05/09/24 12:39 Pulse Rate 108 H 05/09/24 12:39 Respiratory Rate 18 05/09/24 12:39 Blood Pressure 129/85 05/09/24 12:39 Pulse Oximetry 97 05/09/24 12:39 Oxygen Delivery Method Nasal Cannula 05/09/24 12:39 Oxygen Flow Rate 1 05/09/24 12:39 Fraction of Inspired Oxygen 2 05/07/24 20:54 <Paulo Isidro, DO - Last Filed: 05/09/24 13:46> Medications Administered Medications: Generic Name Dose Route Start Last Admin Trade Name Freq PRN Reason Stop Dose Admin Albuterol 2.5 mg 05/07/24 21:36 05/07/24 21:54 Albuterol Sulfate 2.5 Mg/3 Ml Vial.Neb NEB 2.5 mg Q4H PRN Administration Wheezing Guaifenesin/Codeine Phosphate 10 ml 05/07/24 21:35 05/08/24 01:11 Guaif/Codeine 200/20mg/10 Ml Solution PO 10 ml QID PRN Administration cough Piperacillin Sod/Tazobactam 100 mls @ 200 mls/hr 05/07/24 21:45 05/09/24 10:19 Sod 4.5 gm/ Sodium Chloride IVPB Infused Q6H [facility]IN Infusion Vancomycin HCl 2,000 mg/ 520 mls @ 260 mls/hr 05/08/24 10:00 05/09/24 12:38 Sodium Chloride IVPB Infused Q12H [facility] Infusion Protocol Teredem Tartrate 10 mg 05/09/24 01:04 05/09/24 01:47 Zolpidem 5 Mg Tablet PO 10 mg HS PRN Administration Discontinued Medications Generic Name Dose Route Start Last Admin Trade Name Jaspreet PRN Reason Stop Dose Admin Benzonatate 100 mg 05/09/24 08:54 05/09/24 09:08 Benzonatate 100 Mg Capsule PO 05/09/24 08:55 100 mg ONCE ONE Administration Guaifenesin/Codeine Phosphate 10 ml 05/07/24 19:54 05/07/24 20:22 Guaif/Codeine 200/20mg/10 Ml Solution PO 05/07/24 19:55 10 ml ONCE ONE Administration Vancomycin/PEG/NADA/Lysine/Water 2 gm in 400 mls @ 200 mls/hr 05/07/24 22:30 05/08/24 01:26 Vancomycin 2 Gm/400 Ml IVPB 05/08/24 00:29 Infused ONCE ONE Infusion Ibuprofen 600 mg 05/08/24 17:22 05/08/24 17:32 Ibuprofen 200 Mg Tablet PO 05/08/24 17:23 600 mg ONCE ONE Administration Morphine Sulfate 2 mg 05/09/24 04:14 05/09/24 04:16 Morphine 2 Mg/Ml Inj IVP 05/09/24 04:15 2 mg ONCE ONE Administration Morphine Sulfate 4 mg 05/09/24 12:42 05/09/24 12:53 Morphine 4 Mg/Ml Inj IVP 05/09/24 12:43 4 mg ONCE ONE Administration <Maranda Younger MD - Last Filed: 05/08/24 17:23> Generic Name Dose Route Start Last Admin Trade Name Jaspreet PRN Reason Stop Dose Admin Albuterol 2.5 mg 05/07/24 21:36 05/07/24 21:54 Albuterol Sulfate 2.5 Mg/3 Ml Vial.Neb NEB 2.5 mg Q4H PRN Administration Wheezing Guaifenesin/Codeine Phosphate 10 ml 05/07/24 21:35 05/08/24 01:11 Guaif/Codeine 200/20mg/10 Ml Solution PO 10 ml QID PRN Administration cough Piperacillin Sod/Tazobactam 100 mls @ 200 mls/hr 05/07/24 21:45 05/09/24 10:19 Sod 4.5 gm/ Sodium Chloride IVPB Infused Q6H [facility] Infusion Vancomycin HCl 2,000 mg/ 520 mls @ 260 mls/hr 05/08/24 10:00 05/09/24 12:38 Sodium Chloride IVPB Infused Q12H [facility] Infusion Protocol Zolpidem Tartrate 10 mg 05/09/24 01:04 05/09/24 01:47 Zolpidem 5 Mg Tablet PO 10 mg HS PRN Administration Discontinued Medications Generic Name Dose Route Start Last Admin Trade Name Freq PRN Reason Stop Dose Admin Benzonatate 100 mg 05/09/24 08:54 05/09/24 09:08 Benzonatate 100 Mg Capsule PO 05/09/24 08:55 100 mg ONCE ONE Administration Guaifenesin/Codeine Phosphate 10 ml 05/07/24 19:54 05/07/24 20:22 Guaif/Codeine 200/20mg/10 Ml Solution PO 05/07/24 19:55 10 ml ONCE ONE Administration Vancomycin/PEG/NADA/Lysine/Water 2 gm in 400 mls @ 200 mls/hr 05/07/24 22:30 05/08/24 01:26 Vancomycin 2 Gm/400 Ml IVPB 05/08/24 00:29 Infused ONCE ONE Infusion Ibuprofen 600 mg 05/08/24 17:22 05/08/24 17:32 Ibuprofen 200 Mg Tablet PO 05/08/24 17:23 600 mg ONCE ONE Administration Morphine Sulfate 2 mg 05/09/24 04:14 05/09/24 04:16 Morphine 2 Mg/Ml Inj IVP 05/09/24 04:15 2 mg ONCE ONE Administration Morphine Sulfate 4 mg 05/09/24 12:42 05/09/24 12:53 Morphine 4 Mg/Ml Inj IVP 05/09/24 12:43 4 mg ONCE ONE Administration <Mariusz Mathews MD - Last Filed: 05/08/24 18:16> Generic Name Dose Route Start Last Admin Trade Name Freq PRN Reason Stop Dose Admin Albuterol 2.5 mg 05/07/24 21:36 05/07/24 21:54 Albuterol Sulfate 2.5 Mg/3 Ml Vial.Neb NEB 2.5 mg Q4H PRN Administration Wheezing Guaifenesin/Codeine Phosphate 10 ml 05/07/24 21:35 05/08/24 01:11 Guaif/Codeine 200/20mg/10 Ml Solution PO 10 ml QID PRN Administration cough Piperacillin Sod/Tazobactam 100 mls @ 200 mls/hr 05/07/24 21:45 05/09/24 10:19 Sod 4.5 gm/ Sodium Chloride IVPB Infused Q6H [facility] Infusion Vancomycin HCl 2,000 mg/ 520 mls @ 260 mls/hr 05/08/24 10:00 05/09/24 12:38 Sodium Chloride IVPB Infused Q12H [facility] Infusion Protocol Zolpidem Tartrate 10 mg 05/09/24 01:04 05/09/24 01:47 Zolpidem 5 Mg Tablet PO 10 mg HS PRN Administration Discontinued Medications Generic Name Dose Route Start Last Admin Trade Name Freq PRN Reason Stop Dose Admin Benzonatate 100 mg 05/09/24 08:54 05/09/24 09:08 Benzonatate 100 Mg Capsule PO 05/09/24 08:55 100 mg ONCE ONE Administration Guaifenesin/Codeine Phosphate 10 ml 05/07/24 19:54 05/07/24 20:22 Guaif/Codeine 200/20mg/10 Ml Solution PO 05/07/24 19:55 10 ml ONCE ONE Administration Vancomycin/PEG/NADA/Lysine/Water 2 gm in 400 mls @ 200 mls/hr 05/07/24 22:30 05/08/24 01:26 Vancomycin 2 Gm/400 Ml IVPB 05/08/24 00:29 Infused ONCE ONE Infusion Ibuprofen 600 mg 05/08/24 17:22 05/08/24 17:32 Ibuprofen 200 Mg Tablet PO 05/08/24 17:23 600 mg ONCE ONE Administration Morphine Sulfate 2 mg 05/09/24 04:14 05/09/24 04:16 Morphine 2 Mg/Ml Inj IVP 05/09/24 04:15 2 mg ONCE ONE Administration Morphine Sulfate 4 mg 05/09/24 12:42 05/09/24 12:53 Morphine 4 Mg/Ml Inj IVP 05/09/24 12:43 4 mg ONCE ONE Administration <Paulo Isidro DO - Last Filed: 05/09/24 13:46> Medical Decision Making MDM Narrative Medical decision making narrative: Bisi -- Inherited Mr. Pedersen at change of shift. Have continued to attempt to find a bed at a tertiary facility. No beds at this point however have been wait listed. Continues to receive antibiotics. Stable vitals. Did discuss with our general surgeon who was already aware of this case. Will be repeating labs pending placement soon into [facility]. <Mariusz Mathews MD - Last Filed: 05/08/24 18:16> Patient was signed out to me on 05/09/2024 pending transfer. I did give him a small dose of morphine to help keep him comfortable. He was accepted to transfer to [place]. <Paulo Isidro DO - Last Filed: 05/09/24 13:46> Lab Data Lab results reviewed: Yes I reviewed the patient's lab results <Maranda Younger MD - Last Filed: 05/08/24 17:23> Labs: Lab Results 05/07/24 05/07/24 05/08/24 Range/Units 19:52 20:05 16:24 WBC 14.84 H 12.30 H (4.50-11.00) K/uL RBC 4.75 5.05 (4.30-5.90) m/uL Hgb 12.7 L 13.6 (13.5-17.5) gm/dL Hct 39.6 42.4 (37.0-53.0) % MCV 83 84 (80-100) fL MCH 27 27 (26-34) pg MCHC 32 32 (32-36) gm/dL RDW Coeff of Phyllis 13.4 13.5 (11.5-15.5) % Plt Count 317 347 (140-440) K/uL Neut % (Auto) 79.2 H 77.3 H (42.0-72.0) % Lymph % (Auto) 8.9 L 9.5 L (20-44) % Brantley % (Auto) 10.9 11.1 H (0.0-11.0) % Eos % (Auto) 0.0 0.7 (0.0-7.0) % Baso % (Auto) 0.1 0.2 (0.0-3.0) % Neut # (Auto) 11.80 H 9.50 H (1.7-7.0) K/uL Lymph # (Auto) 1.30 1.20 (0.90-2.90) K/uL Brantley # (Auto) 1.60 H 1.40 H (0.00-0.90) K/UL Eos # (Auto) 0.00 0.10 (0.00-0.50) K/uL Baso # (Auto) 0.00 0.00 (0.00-0.30) K/uL Abs Immat Gran (auto) 0.10 0.10 (0.00-0.30) K/uL Imm/Tot Granulo (auto) 0.9 1.2 % D-Dimer Quant (PE/DVT) 2.19 H (0.00-0.50) ug/ml VBG pH 7.473 H (7.32-7.43) VBG pCO2 41 (40-50) mmHG VBG pO2 31.8 (25-47) mmHG VBG HCO3 30 H (21-28) mmol/L Sodium 132 L 131 L (135-149) mmol/L Potassium 3.8 4.0 (3.6-5.1) mmol/L Chloride 96 96 (96-114) mmol/L Carbon Dioxide 28 29 (20-32) mmol/L Anion Gap 8 6 L (7-15) mEq/L BUN 22 18 (5-24) mg/dL Creatinine 0.9 0.8 (0.5-1.5) mg/dL Estimated Creat Clear 116.20 130.73 Estimated GFR 111 115 ml/min Glucose 119 H 138 H (60-115) mg/dL Lactate 1.3 (0.5-1.9) mmol/L Calcium 8.2 L 8.3 L (8.4-10.6) mg/dL Total Bilirubin 0.5 (0.1-1.5) mg/dL AST 52 H (12-35) U/L ALT 91 H (4-50) U/L Alkaline Phosphatase 74 (40-150) U/L Troponin I < 0.01 L (0.01-0.04) ng/mL C-Reactive Protein 20.5 H 18.6 H (0.5-1.0) mg/dL NT-Pro-B Natriuret Pep 48 pg/mL Total Protein 6.9 (6.0-8.3) g/dL Albumin 3.5 (3.3-5.0) g/dL Procalcitonin 0.90 H (<0.50) ng/mL <Maranda Younger MD - Last Filed: 05/08/24 17:23> Lab Results 05/07/24 05/07/24 05/08/24 Range/Units 19:52 20:05 16:24 WBC 14.84 H 12.30 H (4.50-11.00) K/uL RBC 4.75 5.05 (4.30-5.90) m/uL Hgb 12.7 L 13.6 (13.5-17.5) gm/dL Hct 39.6 42.4 (37.0-53.0) % MCV 83 84 (80-100) fL MCH 27 27 (26-34) pg MCHC 32 32 (32-36) gm/dL RDW Coeff of Phyllis 13.4 13.5 (11.5-15.5) % Plt Count 317 347 (140-440) K/uL Neut % (Auto) 79.2 H 77.3 H (42.0-72.0) % Lymph % (Auto) 8.9 L 9.5 L (20-44) % Brantley % (Auto) 10.9 11.1 H (0.0-11.0) % Eos % (Auto) 0.0 0.7 (0.0-7.0) % Baso % (Auto) 0.1 0.2 (0.0-3.0) % Neut # (Auto) 11.80 H 9.50 H (1.7-7.0) K/uL Lymph # (Auto) 1.30 1.20 (0.90-2.90) K/uL Brantley # (Auto) 1.60 H 1.40 H (0.00-0.90) K/UL Eos # (Auto) 0.00 0.10 (0.00-0.50) K/uL Baso # (Auto) 0.00 0.00 (0.00-0.30) K/uL Abs Immat Gran (auto) 0.10 0.10 (0.00-0.30) K/uL Imm/Tot Granulo (auto) 0.9 1.2 % D-Dimer Quant (PE/DVT) 2.19 H (0.00-0.50) ug/ml VBG pH 7.473 H (7.32-7.43) VBG pCO2 41 (40-50) mmHG VBG pO2 31.8 (25-47) mmHG VBG HCO3 30 H (21-28) mmol/L Sodium 132 L 131 L (135-149) mmol/L Potassium 3.8 4.0 (3.6-5.1) mmol/L Chloride 96 96 (96-114) mmol/L Carbon Dioxide 28 29 (20-32) mmol/L Anion Gap 8 6 L (7-15) mEq/L BUN 22 18 (5-24) mg/dL Creatinine 0.9 0.8 (0.5-1.5) mg/dL Estimated Creat Clear 116.20 130.73 Estimated GFR 111 115 ml/min Glucose 119 H 138 H (60-115) mg/dL Lactate 1.3 (0.5-1.9) mmol/L Calcium 8.2 L 8.3 L (8.4-10.6) mg/dL Total Bilirubin 0.5 (0.1-1.5) mg/dL AST 52 H (12-35) U/L ALT 91 H (4-50) U/L Alkaline Phosphatase 74 (40-150) U/L Troponin I < 0.01 L (0.01-0.04) ng/mL C-Reactive Protein 20.5 H 18.6 H (0.5-1.0) mg/dL NT-Pro-B Natriuret Pep 48 pg/mL Total Protein 6.9 (6.0-8.3) g/dL Albumin 3.5 (3.3-5.0) g/dL Procalcitonin 0.90 H (<0.50) ng/mL <Mariusz Mathews MD - Last Filed: 05/08/24 18:16> Lab Results 05/07/24 05/07/24 05/08/24 Range/Units 19:52 20:05 16:24 WBC 14.84 H 12.30 H (4.50-11.00) K/uL RBC 4.75 5.05 (4.30-5.90) m/uL Hgb 12.7 L 13.6 (13.5-17.5) gm/dL Hct 39.6 42.4 (37.0-53.0) % MCV 83 84 (80-100) fL MCH 27 27 (26-34) pg MCHC 32 32 (32-36) gm/dL RDW Coeff of Phyllis 13.4 13.5 (11.5-15.5) % Plt Count 317 347 (140-440) K/uL Neut % (Auto) 79.2 H 77.3 H (42.0-72.0) % Lymph % (Auto) 8.9 L 9.5 L (20-44) % Brantley % (Auto) 10.9 11.1 H (0.0-11.0) % Eos % (Auto) 0.0 0.7 (0.0-7.0) % Baso % (Auto) 0.1 0.2 (0.0-3.0) % Neut # (Auto) 11.80 H 9.50 H (1.7-7.0) K/uL Lymph # (Auto) 1.30 1.20 (0.90-2.90) K/uL Brantley # (Auto) 1.60 H 1.40 H (0.00-0.90) K/UL Eos # (Auto) 0.00 0.10 (0.00-0.50) K/uL Baso # (Auto) 0.00 0.00 (0.00-0.30) K/uL Abs Immat Gran (auto) 0.10 0.10 (0.00-0.30) K/uL Imm/Tot Granulo (auto) 0.9 1.2 % D-Dimer Quant (PE/DVT) 2.19 H (0.00-0.50) ug/ml VBG pH 7.473 H (7.32-7.43) VBG pCO2 41 (40-50) mmHG VBG pO2 31.8 (25-47) mmHG VBG HCO3 30 H (21-28) mmol/L Sodium 132 L 131 L (135-149) mmol/L Potassium 3.8 4.0 (3.6-5.1) mmol/L Chloride 96 96 (96-114) mmol/L Carbon Dioxide 28 29 (20-32) mmol/L Anion Gap 8 6 L (7-15) mEq/L BUN 22 18 (5-24) mg/dL Creatinine 0.9 0.8 (0.5-1.5) mg/dL Estimated Creat Clear 116.20 130.73 Estimated GFR 111 115 ml/min Glucose 119 H 138 H (60-115) mg/dL Lactate 1.3 (0.5-1.9) mmol/L Calcium 8.2 L 8.3 L (8.4-10.6) mg/dL Total Bilirubin 0.5 (0.1-1.5) mg/dL AST 52 H (12-35) U/L ALT 91 H (4-50) U/L Alkaline Phosphatase 74 (40-150) U/L Troponin I < 0.01 L (0.01-0.04) ng/mL C-Reactive Protein 20.5 H 18.6 H (0.5-1.0) mg/dL NT-Pro-B Natriuret Pep 48 pg/mL Total Protein 6.9 (6.0-8.3) g/dL Albumin 3.5 (3.3-5.0) g/dL Procalcitonin 0.90 H (<0.50) ng/mL <Paulo Isidro DO - Last Filed: 05/09/24 13:46> Imaging Data CT scan - chest: Attestation: I have reviewed the pertinent imaging results. <Maranda Younger MD - Last Filed: 05/08/24 17:23> Radiologist's impression: Patient: ANJUM PEDERSEN Facility:?[facility] Patient ID:?[id number] Site Patient ID:?[id number]. Site :?1983 Study:?CT-Chest Angio PE PROTOCOL W/ 95CC ISOVUE 370-05/07/2024 7:44:40 PM Ordering Physician:?Aren Low Final Report: INDICATION: Dyspnea. Chest pain. TECHNIQUE: Multiplanar CT pulmonary angiogram was performed after the administration of 95 mL of Isovue 370 intravenous contrast. COMPARISON: None. FINDINGS: Lower neck: The visualized thyroid is unremarkable. Cardiovascular: Contrast opacification of the pulmonary arterial tree is adequate. Heart size is normal. Thoracic aorta and pulmonary artery are normal in caliber. No significant atherosclerotic calcifications of the aortic arch. No significant coronary arterial calcifications. No large central pulmonary embolus. Mediastinum and lymph nodes: Prominent mediastinal lymph nodes, probably reactive. Lungs: No focal consolidation. Dependent atelectasis. Linear bandlike opacification of the lung bases bilaterally, likely subsegmental atelectasis and/or scarring. Airways: Trachea remains patent and midline. Mild diffuse peribronchial wall thickening. Pleura: Moderate to large loculated left-sided hydropneumothorax, with a loculated collection with air-fluid levels near the left lung apex measuring approximately 7.2 x 4.3 cm (7:152). There are locules of air scattered throughout the large left pleural effusion. No definite pleural enhancement or thickening. Chest wall: Unremarkable. Bones: No acute osseous abnormalities. Mild degenerative changes of the thoracic spine. Upper abdomen: Unremarkable. No reflux of contrast material into the IVC. IMPRESSION: Large multiloculated left-sided hydropneumothorax, the loculated collections with air-fluid level, raising concern for an underlying empyema. While the pleura itself does not appear significantly thickened or hyperenhancing, the sterility of the fluid collection can not be assessed on CT. A bronchopleural fistula can not be excluded. Please note that all CT scans at this facility use dose modulation, iterative reconstruction, and/or weight-based dosing when appropriate to reduce radiation dose to as low as reasonably achievable. Dictated by Victor Manuel Ibarra MD @ 05/07/2024 8:02:05 PM (Electronic Signature) <Maranda Younger MD - Last Filed: 05/08/24 17:23> ECG Data Attestation: I personally reviewed and interpreted this ECG as follows: (Sinus tachycardia, 117 beats per minute. No ischemic change noted or infarct.) <Maranda Younger MD - Last Filed: 05/08/24 17:23> Prior ECG tracings: not available for review <Maranda Younger MD - Last Filed: 05/08/24 17:23> Discharge Plan Discharge Clinical Impression: Loculated pleural effusion <Maranda Younger MD - Last Filed: 05/08/24 17:23> Patient Disposition: [facility] <Maranda Younger MD - Last Filed: 05/08/24 17:23> Condition: Stable <Maranda Younger MD - Last Filed: 05/08/24 17:23> Prescriptions: No Action albuterol sulfate 90 mcg/actuation HFA aerosol inhaler 2 puff inhalation Q4-6H PRN (Reason: shortness of breath or wheezing) Qty: 8.5 3RF azithromycin 250 mg tablet 250 mg PO DAILY prednisone 20 mg tablet 20 mg PO BID <Maranda Younger MD - Last Filed: 05/08/24 17:23> Stand Alone Forms: MyHealth Info Instructions <Maranda Younger MD - Last Filed: 05/08/24 17:23>
--- NOTE | 2024-05-07 19:16 | CRLHL7_ITS ---
For Patients: As a result of the 21st Century Cures Act, medical imaging exams and procedure reports are released immediately into your electronic medical record. You may view this report before your referring provider. If you have questions, please contact your health care provider. INDICATION: Dyspnea. Chest pain. TECHNIQUE: Multiplanar CT pulmonary angiogram was performed after the administration of 95 mL of Isovue 370 intravenous contrast. COMPARISON: None. FINDINGS: Lower neck: The visualized thyroid is unremarkable. Cardiovascular: Contrast opacification of the pulmonary arterial tree is adequate. Heart size is normal. Thoracic aorta and pulmonary artery are normal in caliber. No significant atherosclerotic calcifications of the aortic arch. No significant coronary arterial calcifications. No large central pulmonary embolus. Mediastinum and lymph nodes: Prominent mediastinal lymph nodes, probably reactive. Lungs: No focal consolidation. Dependent atelectasis. Linear bandlike opacification of the lung bases bilaterally, likely subsegmental atelectasis and/or scarring. Airways: Trachea remains patent and midline. Mild diffuse peribronchial wall thickening. Pleura: Moderate to large loculated left-sided hydropneumothorax, with a loculated collection with air-fluid levels near the left lung apex measuring approximately 7.2 x 4.3 cm (7:152). There are locules of air scattered throughout the large left pleural effusion. No definite pleural enhancement or thickening. Chest wall: Unremarkable. Bones: No acute osseous abnormalities. Mild degenerative changes of the thoracic spine. Upper abdomen: Unremarkable. No reflux of contrast material into the IVC. IMPRESSION: Large multiloculated left-sided hydropneumothorax, the loculated collections with air-fluid level, raising concern for an underlying empyema. While the pleura itself does not appear significantly thickened or hyperenhancing, the sterility of the fluid collection can not be assessed on CT. A bronchopleural fistula can not be excluded. Please note that all CT scans at this facility use dose modulation, iterative reconstruction, and/or weight-based dosing when appropriate to reduce radiation dose to as low as reasonably achievable. Dictated by Victor Manuel Ibarra MD @ 05/07/2024 8:02:05 PM (Electronically Signed)
[2024-05-07 20:06] LABS: Basophils Percent Auto 0.1 % (0.0-3.0); Hematocrit 39.6 % (37.0-53.0); Hemoglobin* 12.7 gm/dL (13.5-17.5); Immature Granulocytes Pct Auto 0.9 %; Lymphocytes Percent Auto 8.9 % (20-44); Mean Corpuscular HGB Conc 32 gm/dL (32-36); Mean Corpuscular Hemoglobin 27 pg (26-34); Mean Corpuscular Volume 83 fL (80-100); Monocytes Percent Auto 10.9 % (0.0-11.0); Neutrophils Percent Auto 79.2 % (42.0-72.0); Platelet Count* 317 K/uL (140-440); RDW Coefficient of Variation % 13.4 % (11.5-15.5); Red Blood Count 4.75 m/uL (4.30-5.90); White Blood Count* 14.84 K/uL (4.50-11.00)
--- OUTSIDE RECORDS SUMMARY | 2024-05-07 20:09 | XMS_ITS | Clinical Summary ---
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 Care Teams Mutual Funds Agent Relationship Specialty Start Date End Date Ridge Glass MD [address] [address] PCP - General Family Medicine 12/28/21
--- OUTSIDE RECORDS SUMMARY | 2024-05-07 20:09 | XMS_ITS | Continuity of Care Document ---
Author Name [facility] User [email or web address] Address Unknown Organization Unknown Address Unknown Procedures FILTER APPLIED:Only known Procedures with Onset Date within the last 5 years Procedure Date Procedure Provider Additional Inform ation Status SEMEN ANAL STRICT CRITERIA (09580) Completed Encounters FILTER APPLIED:Only known Encounters with Admission Date within the last 5 years Encounter Location Admission Discharge Billing Code Horticultural Worker [facility] Unknown [id number] MILKA FREITAS
--- OUTSIDE RECORDS SUMMARY | 2024-05-07 20:09 | XMS_ITS | Clinical Summary ---
Author Organization [employer] [facility] Address [place], [place] [address] Care Team Providers Care Hardwood Floor Layer Name Role Phone Dennis Glass MD Primary Care Provider [phone] Allergies No known active allergies Medications Ventolin [...] Department Care Team Description 05/03/2024 3:59 PM LIVESTOCK BRANDS INSPECTOR - 05/03/2024 4:57 PM LIVESTOCK BRANDS INSPECTOR Emergency 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 Gender Identity Not on file Sexual Orientation Not on file Obstetrics History Last Filed Vital Signs Vital Sign Reading Time Taken Comments Blood Pressure 158/88 05/03/2024 3:56 PM LIVESTOCK BRANDS INSPECTOR Pulse 118 05/03/2024 3:56 PM LIVESTOCK BRANDS INSPECTOR Temperature 37.6 C (99.7 F) 05/03/2024 3:55 PM LIVESTOCK BRANDS INSPECTOR Respiratory Rate 19 05/03/2024 3:56 PM LIVESTOCK BRANDS INSPECTOR Oxygen Saturation 99% 05/03/2024 3:56 PM LIVESTOCK BRANDS INSPECTOR Inhaled Oxygen Concentration - - Weight 127 kg (280 lb) 05/03/2024 3:56 PM LIVESTOCK BRANDS INSPECTOR Height 177.8 cm (5' 10) 05/03/2024 3:56 PM LIVESTOCK BRANDS INSPECTOR Body Mass Index 40.18 05/03/2024 3:56 PM LIVESTOCK BRANDS INSPECTOR Plan of Treatment Health Maintenance Due Date [...] PA AND LATERAL STAT 05/03/2024 4:28 PM LIVESTOCK BRANDS INSPECTOR from Last 3 Months Results * XR CHEST 2 VIEWS PA AND LATERAL (05/03/2024 4:28 PM LIVESTOCK BRANDS INSPECTOR) Anatomical Region Laterality Modality CHEST, THORAX, Lung, HEART Digit al Radiography 05/03/2024 4:47 PM LIVESTOCK BRANDS INSPECTOR Impressions 05/03/2024 4:47 PM LIVESTOCK BRANDS INSPECTOR Triangular left suprahilar opacification consistent with a focal area of atelectasis and/or infiltrate. A mass or adenopathy might also give this appearance. Suggest interval follow-up post treatment to exclude underlying disease. Dictated by Torey French MD @ 05/03/2024 4:47:02 PM (Electronically Signed) Narrative 05/03/2024 4:47 PM LIVESTOCK BRANDS INSPECTOR For Patients: As a result of the [...] MD @ 05/03/2024 4:47:02 PM (Electronically Signed) us Ilene Watkins NP GENERAL IMAGING Final Result from Last 3 Months Insurance [facility] Care Teams Hardwood Floor Layer Relationship Specialty Start Date End Date Dennis Glass MD [address] [place] [address] PCP - General Family Practice 05/03/24
[2024-05-07 20:11] LABS: HCO3 VBG 30 mmol/L (21-28); Lactate* 1.3 mmol/L (0.5-1.9); PCO2 VBG 41 mmHG (40-50); PO2 VBG 31.8 mmHG (25-47); pH VBG 7.473 (7.32-7.43)
[2024-05-07] MEDS: GUAIF/CODEINE 200/20MG/10 ML SOLUTION PO (20:22)
[2024-05-07 20:25] LABS: Slide Review Reflex No
[2024-05-07 20:30] LABS: Albumin* 3.5 g/dL (3.3-5.0); Chloride* 96 mmol/L (96-114)
[2024-05-07 20:31] LABS: Potassium* 3.8 mmol/L (3.6-5.1); Sodium* 132 mmol/L (135-149)
[2024-05-07 20:33] LABS: Bilirubin Total* 0.5 mg/dL (0.1-1.5); Creatinine* 0.9 mg/dL (0.5-1.5); Estimated Glomerular Filt Rate 111 ml/min
[2024-05-07 20:34] LABS: Alanine Aminotransferase* 91 U/L (4-50); Alkaline Phosphatase* 74 U/L (40-150); Anion Gap 8 mEq/L (7-15); Aspartate Amino Transferase* 52 U/L (12-35); Blood Urea Nitrogen* 22 mg/dL (5-24); Carbon Dioxide* 28 mmol/L (20-32); Glucose* 119 mg/dL (60-115); Total Protein* 6.9 g/dL (6.0-8.3)
[2024-05-07 20:35] LABS: Calcium* 8.2 mg/dL (8.4-10.6)
[2024-05-07 21:12] LABS: C Reactive Protein* 20.5 mg/dL (0.5-1.0); NT Pro B Type NatriureticPept* 48 pg/mL; Troponin I* < 0.01 ng/mL (0.01-0.04)
[2024-05-07 21:29] LABS: D Dimer Quantitative* 2.19 ug/ml (0.00-0.50)
[2024-05-07] MEDS: PIPERACILLIN/TAZOBACTAM 4.5 GM in 0.9 % SODIUM CHLORIDE Mini-bag 100 ML IVPB (21:51)
[2024-05-07] MEDS: ALBUTEROL SULFATE 2.5 MG/3 ML VIAL.NEB NEB (21:54)
[2024-05-07] MEDS: VANCOMYCIN 2 GM/400 ML 2 GM/400 ML PIGGYBACK IVPB (23:00)
[2024-05-08] VITALS (26 sets, daily range): BP systolic 121–149; BP diastolic 73–106; PULSE 106–118; RESP 16–20; TEMP 36.8–37.2; O2SAT 91–99
[2024-05-08] MEDS: GUAIF/CODEINE 200/20MG/10 ML SOLUTION PO (01:11)
[2024-05-08] MEDS: PIPERACILLIN/TAZOBACTAM 4.5 GM in 0.9 % SODIUM CHLORIDE Mini-bag 100 ML IVPB ×4 (03:46→21:52)
[2024-05-08 16:28] LABS: Basophils Percent Auto 0.2 % (0.0-3.0); Eosinophils Percent Auto 0.7 % (0.0-7.0); Hematocrit 42.4 % (37.0-53.0); Hemoglobin* 13.6 gm/dL (13.5-17.5); Immature Granulocytes Pct Auto 1.2 %; Lymphocytes Percent Auto 9.5 % (20-44); Mean Corpuscular HGB Conc 32 gm/dL (32-36); Mean Corpuscular Hemoglobin 27 pg (26-34); Mean Corpuscular Volume 84 fL (80-100); Monocytes Percent Auto 11.1 % (0.0-11.0); Neutrophils Percent Auto 77.3 % (42.0-72.0); Platelet Count* 347 K/uL (140-440); RDW Coefficient of Variation % 13.5 % (11.5-15.5); Red Blood Count 5.05 m/uL (4.30-5.90)
[2024-05-08 16:43] LABS: Chloride* 96 mmol/L (96-114); Sodium* 131 mmol/L (135-149)
[2024-05-08 16:46] LABS: Anion Gap 6 mEq/L (7-15); Blood Urea Nitrogen* 18 mg/dL (5-24); Carbon Dioxide* 29 mmol/L (20-32); Creatinine* 0.8 mg/dL (0.5-1.5); Est. Creatinine Clearance* 130.73; Estimated Glomerular Filt Rate 115 ml/min
[2024-05-08 16:47] LABS: Calcium* 8.3 mg/dL (8.4-10.6); Glucose* 138 mg/dL (60-115)
[2024-05-08 16:51] LABS: Slide Review Reflex No
[2024-05-08 17:01] LABS: C Reactive Protein* 18.6 mg/dL (0.5-1.0)
[2024-05-08] MEDS: IBUPROFEN 200 MG TABLET 600 MG PO (17:32)
[2024-05-09] VITALS (21 sets, daily range): BP systolic 129–148; BP diastolic 76–99; PULSE 104–119; RESP 18–28; TEMP 36.3–37; O2SAT 91–97
[2024-05-09] MEDS: ZOLPIDEM 5 MG TABLET 10 MG PO (01:47)
[2024-05-09] MEDS: PIPERACILLIN/TAZOBACTAM 4.5 GM in 0.9 % SODIUM CHLORIDE Mini-bag 100 ML IVPB ×3 (04:08→13:56)
[2024-05-09] MEDS: MORPHINE 2 MG/ML inj IVP (04:16)
[2024-05-09] MEDS: BENZONATATE 100 MG CAPSULE PO (09:08)
[2024-05-09] MEDS: MORPHINE 4 MG/ML INJ IVP (12:53)
== END 2024-05-09 14:31 | disposition home or self-care (01) ==
PROVIDERS: Family Medicine; Emergency Provider Student in an Organized Health Care Education/Training Program; PCP Family Medicine
DX: J90 Pleural effusion, not elsewhere classified (principal)
CPT/HCPCS: 36415; 71275; 80048; 80053; 82803; 83605; 83880; 84145; 84484; 85025; 85379; 86140; 93005; 94640; 94761; 96365; 96366; 96375; 99285; A9270; J2270; J2543; J3370; J3372; J7030; Q9967

== ENCOUNTER 2024-05-09 14:02 | Outpatient (CLI) | payer OTHER, SELFPAY | END 2024-05-09 14:03 | disposition home or self-care (01) | LOC: AMB 05-23 06:40 | PROVIDERS: PCP Family Medicine; Visit Provider Emergency Medicine Emergency Medical Services | DX: J90 Pleural effusion, not elsewhere classified (principal) | CPT/HCPCS: A0425; A0433 ==

== ENCOUNTER 2024-07-17 11:37 | Outpatient (CLI) | payer OTHER, SELFPAY | END 2024-07-17 11:38 | disposition home or self-care (01) | LOC: LKVREF 11:38 | PROVIDERS: PCP Family Medicine; Visit Provider Family Medicine | DX: Z12.5 Encounter for screening for malignant neoplasm of prostate (principal) | CPT/HCPCS: G0103 ==

== ENCOUNTER 2024-07-31 08:53 | Outpatient (CLI) | payer OTHER, SELFPAY | END 2024-07-31 08:54 | disposition home or self-care (01) | LOC: NFLDREF 08-03 20:46 | PROVIDERS: PCP Family Medicine; Referring Provider Family Medicine; Visit Provider Family Medicine | DX: E29.1 Testicular hypofunction (principal) | CPT/HCPCS: 84270; 84402; 84403 ==

== ENCOUNTER 2024-10-23 15:32 | Outpatient (CLI) | payer OTHER, SELFPAY | END 2024-10-23 15:33 | disposition home or self-care (01) | LOC: LKVREF 15:33 | PROVIDERS: PCP Family Medicine; Visit Provider Family Medicine | DX: E29.1 Testicular hypofunction (principal) | CPT/HCPCS: 84403 ==

== ENCOUNTER 2024-12-03 12:35 | Outpatient (CLI) | payer OTHER, SELFPAY ==
--- NOTE | 2024-12-10 10:58 | P.SLS_ITS ---
Sleep Study Details Details Interpreting Provider: Dano Date of Sleep Study: 12/03/24 Sleep Study Details: STUDY TYPE:? Home unattended ? BMI:? 39.9 ORDERING PROVIDER:Marycarmen Matson INDICATION:? Concerned about sleep apnea ? SLEEP SUMMARY:? 206 minutes monitored RESPIRATORY SUMMARY:? AHI 93.7 per rule 1A, 93.4 per CMS guideline, central apnea index 2.6 Low oxygen 70 47% of study oxygen less than 90% Snoring 88.8% PERIODIC LIMB MOVEMENTS OF SLEEP:? Not recorded CARDIAC:? Range 45-116, mean 79.6 beats per minute IMPRESSION:? Very severe obstructive sleep apnea with significant hypo oxygenation RECOMMENDATION: Treatment options include in-lab titration study versus home auto CPAP with close follow-up. Once effective therapy is established the pa tient should have overnight oximetry. Weight loss is also indicated.
== END 2024-12-03 12:36 | disposition home or self-care (01) ==
LOC: SLEEP 12:35
PROVIDERS: PCP Family Medicine; Visit Provider Otolaryngology
DX: G47.33 Obstructive sleep apnea (adult) (pediatric) (principal)
CPT/HCPCS: 95806

== ENCOUNTER 2025-03-19 14:50 | Outpatient (CLI) | payer OTHER, SELFPAY | END 2025-03-19 14:51 | disposition home or self-care (01) | PROVIDERS: PCP Family Medicine; Visit Provider Family Medicine | DX: K42.9 Umbilical hernia without obstruction or gangrene (principal) | CPT/HCPCS: 80048; 80076 ==

== ENCOUNTER 2025-03-25 08:39 | Day surgery (SDC) | payer OTHER, SELFPAY ==
[2025-03-25] VITALS (11 sets, daily range): BP systolic 127–153; BP diastolic 73–100; PULSE 71–87; RESP 12–20; TEMP 36.6–37.1; O2SAT 92–99; BMI 40.4
[2025-03-25] MEDS: LACTATED RINGERS 1000 ML 1,000 ML 100 ML IV (08:45)
[2025-03-25] MEDS: SODIUM CHLORIDE 0.9 % (FLUSH) 10 ML SYRINGE IVF (09:08)
--- NOTE | 2025-03-25 09:30 | W.PM.H&PU ---
History & Physical Update History & Physical Update H&P Reviewed and patient assessed: No changes noted
--- NOTE | 2025-03-25 09:33 | P.GSOP_ITS ---
Operative Note Date of procedure: 03/25/25 Pre-op diagnosis: 1. Symptomatic umbilical hernia. Post-op diagnosis: 1. Umbilical hernia with incarcerated preperitoneal fat. Type of Procedure: 1. Open umbilical hernia repair with mesh. Indications: 39-year-old male was seen in clinic for evaluation of umbilical bulge. The bulge was initially noticed several years ago and has been increasing in size. Patient felt like the bulge was variable in size depending on what he ate. He denied pain at the bulge. He was having regular bowel movements but had occasional episodes of constipation. On clinical exam his abdomen was soft, there was an umbilical bulge measuring quarter in size that was reducible. Patient had discomfort when reducing the bulge. His fascial defect was estimated to be 1.5 cm. Given patient's clinical history and his physical exam, open umbilical hernia repair was recommended. The procedure was discussed in detail. The risks associated procedure including infection, bleeding, injury to intra-abdominal organs, cardiopulmonary complications, and hernia recurrence were all discussed with the patient, and he agreed to proceed. Procedure Description: After discussing the risks and benefits of the procedure, the patient signed informed consent.? The operative site was marked and the patient was brought to the operating room and placed on the operating table in supine position.? Care was taken to pad the patient's pressure points.?? The patient was then intubated by anesthesia.?? The operative site was then prepped and draped in the usual sterile fashion.? A time-out was then performed. A curvilinear skin incision was made with a scalpel just below umbilicus. Subcutaneous tissue was dissected with electrocautery down to the hernia sac and anterior fascia. The hernia sac was dissected off the anterior fascia and subcutaneous fat around the fascial defect was dissected away from the fascial defect with cautery. I then developed preperitoneal space for mesh insertion. The fascial defect was 1.5 cm. The surrounding fascia was strong. A medium-siz ed Ventralex ST mesh patch was then inserted into preperitoneal space and secured to the fascia using 0-0 Neurolon interrupted stitches. I examined my closure and no defects were identified between the fascia and the mesh. Fascia was re-approximated over the mesh with a running 2-0 Vicryl stitch. Local anesthetic was injected into subcutaneous tissues. An umbilicus was tacked down with interrupted 3-0 Vicryl stitches. Subdermal layer was closed with interrupted sutures using 3-0 Vicryl. Skin was closed with 4-0 Monocryl using subcuticular stitch. Steri strips were applied over the incision. I then placed a folded sterile 4x4 gauze over the incision and covered it with tape. All counts were correct at the end of the case. Patient tolerated the procedure well and was transferred to PACU without any complications. Findings: 1.5 cm fascial defect with strong surrounding fascia. Implants: Ventralex ST 6.4 cm mesh. Anesthesia: GETA Surgeon: Christa Mejias MD Estimated blood loss (mL): 5 Condition: stable Disposition: PACU
[2025-03-25] MEDS: BUPIVACAINE 0.25% 30 ML INJECTION (11:11)
--- NOTE | 2025-03-25 11:39 | P.ANES_ITS ---
Anesthesia Charges Start Date/Time Anesthesia Start Date: 03/25/25 Anesthesia Start Time: 10:10 Stop Date/Time Anesthesia Stop Date: 03/25/25 Anesthesia Stop Time: 11:34 Coding CPT Codes CPT Codes: ANESTH REPAIR OF HERNIA - 03953 ([id number]) QZ - NEWSPAPER CORRESPONDENT SVC W/O BULL WHEEL WORKER BY , P3 - PATIENT W/SEVERE SYS DISEASE
--- NOTE | 2025-03-25 11:39 | W.ANESCHARGE ---
Anesthesia Charges Start Date/Time Anesthesia Start Date: 03/25/25 Anesthesia Start Time: 10:10 Stop Date/Time Anesthesia Stop Date: 03/25/25 Anesthesia Stop Time: 11:34 Coding CPT Codes CPT Codes: ANESTH REPAIR OF HERNIA - 69535 ([id number]) QZ - JOINERY SETTER OUT SVC W/O HEALTH EDITOR BY , P3 - PATIENT W/SEVERE SYS DISEASE
--- NOTE | 2025-03-25 12:04 | SUR.PHASEI ---
patient met discharge criteria per anesthesia
== END 2025-03-25 13:03 | disposition home or self-care (01) ==
PROVIDERS: Visit Provider Surgery
PROC: (CPT 49592; principal; 2025-03-25 10:45)
DX: K42.0 Umbilical hernia with obstruction, without gangrene (principal)
CPT/HCPCS: 49592; 00830; 00840; C1781; J0330; J0665; J0690; J1100; J2250; J2405; J2704; J2710; J3010; J3490; J7120